=== PATIENT | male | born 1965 | race African-American/Black ===

== ENCOUNTER 2022-03-08 05:50 | Inpatient (IN) | payer MEDICAID ==
[~2022-03-08] VITALS: Ht 188 cm; Wt 90.4 kg
[2022-03-08] VITALS (40 sets, daily range): BP systolic 95–157; BP diastolic 31–79
[~2022-03-08 05:50] MED LIST: AMLO10TA4 PO
[2022-03-08 06:44] LABS: CHLORIDE 99 mEq/L (98-107); MEAN CORPUSCULAR HEMOGLOBIN 29.8 pg (28.0-32.0); MEAN CORPUSCULAR VOLUME 89.9 fL (80.0-94.0); MEAN PLATELET VOLUME 7.2 fl (7.4-10.4); PLATELET 61 x1000/uL (130-400); RED BLOOD CELL COUNT 2.32 mill/uL (4.7-6.1); RED CELL DISTRIBUTION WIDTH 23.1 % (11.6-14.6)
[2022-03-08 06:47] LABS: CLARITY URINE CLEAR (CLEAR); COLOR URINE YELLOW (YELLOW); KETONES URINE TRACE (NEGATIVE); LEUKOCYTE ESTERASE URINE NEGATIVE (NEGATIVE); NITRITE URINE NEGATIVE (NEGATIVE); OCCULT BLOOD URINE NEGATIVE (NEGATIVE); PROTEIN URINE TRACE (NEGATIVE); SPECIFIC GRAVITY URINE 1.018 (1.005-1.030)
[2022-03-08 06:49] LABS: HEMATOCRIT. 20.9 % (42.0-52.0); HEMOGLOBIN. 6.9 g/dL (14.0-18.0)
[2022-03-08 07:01] LABS: ETHANOL BLOOD < 10 mg/dL
[2022-03-08 07:04] LABS: *AMPHETAMINES SCREEN URINE NEGATIVE (NEGATIVE); *BARBITURATES SCREEN URINE NEGATIVE (NEGATIVE); *BENZODIAZEPINES SCREEN URINE NEGATIVE (NEGATIVE); *COCAINE SCREEN URINE NEGATIVE (NEGATIVE); CANNABINOID URINE SCREEN PRESUMTIVE POSITIVE (NEGATIVE); METHADONE URINE SCREEN NEGATIVE (NEGATIVE); OPIATES URINE SCREEN PRESUMTIVE POSITIVE (NEGATIVE); PHENCYCLIDINE URINE SCREEN NEGATIVE (NEGATIVE)
[2022-03-08 07:22] LABS: INR 1.1; PROTHROMBIN TIME 11.3 sec (9.6-11.0)
[2022-03-08 07:29] LABS: NUCLEATED RED BLOOD CELLS 4 /100 WBC
[2022-03-08 07:30] LABS: PLATELET ESTIMATE DECREASED
[2022-03-08] MEDS ORDERED: ETOMIDATE 2MG/ML 10ML VIAL IV ONE (07:45)
[2022-03-08] MEDS ORDERED: SUCCINYLCHOLINE CHLORIDE 200MG/10ML IV ONE (07:45)
[2022-03-08] MEDS ORDERED: MIDAZOLAM 100MG/100ML PMX 100 ML IV PRN (08:00)
[2022-03-08] MEDS ORDERED: THROMBIN (BOVINE) 5000 UNITS/VIAL TOP ONE (08:04)
[2022-03-08] MEDS ORDERED: BACITRACIN 15GM TUBE TOP ONE (08:04)
[2022-03-08] MEDS ORDERED: LIDOCAINE HCL/EPINEPHRINE 1%-EPI 1:100,000 20 ML VIAL ONE (08:04)
[2022-03-08] MEDS ORDERED: GENTAMICIN SULF 40MG/ML 2ML VIAL ONE (08:04)
[2022-03-08] MEDS ORDERED: ROCURONIUM BROMIDE 10MG/ML VIAL 5ML IV ONE ×2 (08:24→10:15)
[2022-03-08] MEDS ORDERED: HYDROMORPHONE HCL/PF 2MG/ML CPJ ONE (09:05)
[2022-03-08] MEDS ORDERED: ALBUMIN HUMAN 25GM/100ML (25%) IV ONE (09:09)
[2022-03-08] MEDS ORDERED: DEXAMETHASONE 4MG/ML 1ML VIAL ONE (09:44)
[2022-03-08] MEDS ORDERED: CEFAZOLIN SODIUM 1000MG/VIAL ONE (09:44)
[2022-03-08] MEDS ORDERED: NICARDIPINE 100 MG in SODIUM CHLORIDE 0.9% 60 ML IV PRN (10:15)
[2022-03-08] MEDS ORDERED: MORPHINE SULFATE 4 MG/ML CPJ (NOT FOR IM USE) IV PRN (10:15)
[2022-03-08] MEDS ORDERED: HYDRALAZINE 20MG/ML VIAL IV NR ×2 (11:20→15:15)
[2022-03-08] MEDS ORDERED: DEXTROSE 50% WATER 50ML SYRINGE IV PRN (11:30)
[2022-03-08] MEDS ORDERED: MAGNESIUM/ALUMINUM HYDROXIDE/SIMETHICONE 30ML UDC PO PRN (11:30)
[2022-03-08] MEDS ORDERED: IPRATROPIUM/ALBUTEROL 0.5-3(2.5)MG/3ML NEB HHN PRN (11:30)
[2022-03-08] MEDS ORDERED: HYDROCODONE/ACETAMINOPHEN 5/325MG TABLET PO PRN (11:30)
[2022-03-08] MEDS ORDERED: ACETAMINOPHEN 325MG TABLET PO PRN (11:30)
[2022-03-08] MEDS ORDERED: ONDANSETRON HCL 4MG/2ML INJ IV PRN (11:30)
[2022-03-08 11:40] LABS: BG BASE EXCESS -1.4 mmol/L (-2.0-2.0); BG CARBOXYHEMOGLOBIN 0.1 % (0.5-1.5); BG DEOXYHEMOGLOBIN 0.4 % (0.0-5.0); BG FRACTION INSPIRED OXYGEN 100; BG HCO3 ACT 23.4 mmol/L (22.0-26.0); BG METHEMOGLOBIN 0.2 % (0.0-1.5); BG OXYGEN SATURATION 99.6 % (92.0-98.5); BG OXYHEMOGLOBIN 99.3 % (94.0-97.0); BG PCO2 39.8 mmHg (35.0-45.0); BG PH 7.388 (7.350-7.450); BG PO2 388.2 mmHg (75.0-100.0); BG SAMPLE SITE ALINE; BG TOTAL HEMOGLOBIN 6.5 g/dL (12.0-18.0); BG VENT MODE VENT - AC
[2022-03-08] MEDS ORDERED: FUROSEMIDE 20MG/2ML VIAL IVP NR ×2 (13:00→23:00)
[2022-03-08] MEDS ORDERED: NALOXONE HCL 0.4MG/ML VIAL IV PRN (13:45)
[2022-03-08] MEDS ORDERED: CEFAZOLIN 1000MG PREMIX 50 ML IV SCH (14:00)
[2022-03-08] MEDS: PROPOFOL 10MG/ML 100ML 100 ML IV PRN ×3 (14:19→21:45)
[2022-03-08] MEDS: NICARDIPINE 100 MG in SODIUM CHLORIDE 0.9% 100 ML IV PRN ×3 (14:23→23:50)
[2022-03-08] MEDS: DEXT 5%/LACTATED RINGERS 1,000 ML IV SCH (14:26)
[2022-03-08 15:01] LABS: ETHANOL BLOOD < 10 mg/dL; TOTAL IRON BINDING CAPACITY 324 ug/dL (250-450)
[2022-03-08] MEDS: CEFAZOLIN 1000MG PREMIX 50 ML IV SCH ×2 (15:24→22:44)
[2022-03-08] MEDS ORDERED: MORPHINE SULFATE 4 MG/ML CPJ (NOT FOR IM USE) IV NR (15:30)
[2022-03-08] MEDS: FENTANYL 2500MCG/250ML PMX 250 ML IV PRN (17:22)
[2022-03-08] MEDS: MORPHINE SULFATE 4 MG/ML CPJ (NOT FOR IM USE) IV PRN ×2 (21:30→23:46)
[2022-03-08] MEDS: HYDRALAZINE 20MG/ML VIAL IV PRN (22:11)
[2022-03-09] VITALS (81 sets, daily range): BP systolic 94–162; BP diastolic 38–58
[2022-03-09] MEDS: PROPOFOL 10MG/ML 100ML 100 ML IV PRN ×6 (01:09→20:38)
[2022-03-09] MEDS: MORPHINE SULFATE 4 MG/ML CPJ (NOT FOR IM USE) IV PRN ×4 (02:14→13:51)
[2022-03-09] MEDS: FENTANYL 2500MCG/250ML PMX 250 ML IV PRN (04:17)
[2022-03-09 04:38] LABS: HEMOGLOBIN. 7.4 g/dL (14.0-18.0); MEAN CORPUSCULAR HEMOGLOBIN 30.2 pg (28.0-32.0); MEAN CORPUSCULAR VOLUME 89.3 fL (80.0-94.0); MEAN PLATELET VOLUME 6.9 fl (7.4-10.4); PLATELET 55 x1000/uL (130-400); RED BLOOD CELL COUNT 2.46 mill/uL (4.7-6.1); RED CELL DISTRIBUTION WIDTH 18.8 % (11.6-14.6)
[2022-03-09] MEDS: CEFAZOLIN 1000MG PREMIX 50 ML IV SCH ×3 (06:15→21:29)
[2022-03-09 06:35] LABS: CHLORIDE 104 mEq/L (98-107)
[2022-03-09] MEDS: NICARDIPINE 100 MG in SODIUM CHLORIDE 0.9% 100 ML IV PRN ×3 (06:37→22:27)
[2022-03-09 06:48] LABS: HDL CHOLESTEROL 96 mg/dL (40-59); LDL CHOLESTEROL 62 mg/dL (5-100); PHOSPHORUS 5.2 mg/dL (2.5-4.9); T4 FREE 1.32 ng/dL (0.76-1.46)
[2022-03-09] MEDS: PANTOPRAZOLE SODIUM 40 MG/VIAL IV SCH (08:05)
[2022-03-09 08:59] LABS: BG BASE EXCESS -2.4 mmol/L (-2.0-2.0); BG CARBOXYHEMOGLOBIN 0.6 % (0.5-1.5); BG DEOXYHEMOGLOBIN 2.2 % (0.0-5.0); BG FRACTION INSPIRED OXYGEN 40; BG HCO3 ACT 22.2 mmol/L (22.0-26.0); BG METHEMOGLOBIN 0.6 % (0.0-1.5); BG OXYGEN SATURATION 97.8 % (92.0-98.5); BG OXYHEMOGLOBIN 96.6 % (94.0-97.0); BG PH 7.396 (7.350-7.450); BG PO2 110.7 mmHg (75.0-100.0); BG SAMPLE SITE ALINE; BG TOTAL HEMOGLOBIN 7.5 g/dL (12.0-18.0); BG VENT MODE VENT - AC
[2022-03-09] MEDS: DEXAMETHASONE 4MG/ML 1ML VIAL IV SCH ×3 (09:14→17:33)
[2022-03-09] MEDS ORDERED: LIDOCAINE HCL/PF 1% 10 MG/ML 5ML VIAL ONE (09:16)
[2022-03-09 09:42] LABS: NUCLEATED RED BLOOD CELLS 4 /100 WBC
[2022-03-09 09:43] LABS: PLATELET ESTIMATE MARKEDLY DECREASED
[2022-03-09] MEDS: AMLODIPINE 10MG TABLET PO SCH (14:15)
[2022-03-09] MEDS ORDERED: MANNITOL 20% (20GM/100ML) BAG 500ML PREMIX IV ONE (14:45)
[2022-03-09 15:13] LABS: HEMOGLOBIN 7.7 g/dL (14.0-18.0); MEAN CORPUSCULAR HEMOGLOBIN 30.3 pg (28.0-32.0); MEAN CORPUSCULAR VOLUME 89.8 fL (80.0-94.0); PLATELET 51 x1000/uL (130-400); RED BLOOD CELL COUNT 2.56 mill/uL (4.7-6.1); RED CELL DISTRIBUTION WIDTH 18.9 % (11.6-14.6)
[2022-03-09] MEDS ORDERED: MANNITOL 20% 200 ML IV NR (15:30)
[2022-03-09] MEDS: NITROPRUSSIDE 50 MG in SODIUM CHLORIDE 0.9% 248 ML IV PRN (17:41)
[2022-03-09] MEDS: LEVETIRACETAM 500MG PREMIX 100 ML IV SCH (20:37)
[2022-03-10] VITALS (83 sets, daily range): BP systolic 90–185; BP diastolic 38–74
[2022-03-10] MEDS: PROPOFOL 10MG/ML 100ML 100 ML IV PRN ×7 (00:24→22:15)
[2022-03-10] MEDS: DEXAMETHASONE 4MG/ML 1ML VIAL IV SCH ×4 (00:33→17:30)
[2022-03-10] MEDS: FENTANYL 2500MCG/250ML PMX 250 ML IV PRN ×2 (00:33→17:22)
[2022-03-10] MEDS: DEXT 5%/LACTATED RINGERS 1,000 ML IV SCH ×3 (00:34→22:13)
[2022-03-10 02:18] LABS: HEMATOCRIT. 24.7 % (42.0-52.0); HEMOGLOBIN. 8.2 g/dL (14.0-18.0); MEAN CORPUSCULAR HEMOGLOBIN 30.4 pg (28.0-32.0); MEAN PLATELET VOLUME 8.2 fl (7.4-10.4); PLATELET 98 x1000/uL (130-400); RED BLOOD CELL COUNT 2.69 mill/uL (4.7-6.1); RED CELL DISTRIBUTION WIDTH 18.3 % (11.6-14.6)
[2022-03-10] MEDS: NITROPRUSSIDE 50 MG in SODIUM CHLORIDE 0.9% 248 ML IV PRN ×2 (04:59→17:30)
[2022-03-10] MEDS: NICARDIPINE 100 MG in SODIUM CHLORIDE 0.9% 100 ML IV PRN ×4 (05:22→22:33)
[2022-03-10] MEDS: CEFAZOLIN 1000MG PREMIX 50 ML IV SCH ×2 (05:22→15:17)
[2022-03-10 06:36] LABS: CHLORIDE 104 mEq/L (98-107)
[2022-03-10 06:50] LABS: HEMOGLOBIN. 7.2 g/dL (14.0-18.0); MEAN CORPUSCULAR HEMOGLOBIN 30.5 pg (28.0-32.0); MEAN CORPUSCULAR VOLUME 89.3 fL (80.0-94.0); MEAN PLATELET VOLUME 8.2 fl (7.4-10.4); PLATELET 99 x1000/uL (130-400); RED BLOOD CELL COUNT 2.35 mill/uL (4.7-6.1); RED CELL DISTRIBUTION WIDTH 17.5 % (11.6-14.6)
[2022-03-10 06:55] LABS: HEPATITIS B SURFACE ANTIGEN NEGATIVE
[2022-03-10 07:12] LABS: HAPTOGLOBIN 342 mg/dL (30-200)
[2022-03-10 07:36] LABS: NUCLEATED RED BLOOD CELLS 5 /100 WBC
[2022-03-10 07:37] LABS: PLATELET ESTIMATE DECREASED
[2022-03-10] MEDS: LEVETIRACETAM 500MG PREMIX 100 ML IV SCH (08:52)
[2022-03-10] MEDS: PANTOPRAZOLE SODIUM 40 MG/VIAL IV SCH (08:52)
[2022-03-10] MEDS: AMLODIPINE 10MG TABLET PO SCH (09:00)
[2022-03-10 09:12] LABS: BG BASE EXCESS -1.3 mmol/L (-2.0-2.0); BG CARBOXYHEMOGLOBIN 0.3 % (0.5-1.5); BG DEOXYHEMOGLOBIN 2.8 % (0.0-5.0); BG FRACTION INSPIRED OXYGEN 35; BG HCO3 ACT 22.8 mmol/L (22.0-26.0); BG METHEMOGLOBIN 0.1 % (0.0-1.5); BG OXYGEN SATURATION 97.2 % (92.0-98.5); BG OXYHEMOGLOBIN 96.8 % (94.0-97.0); BG PCO2 34.7 mmHg (35.0-45.0); BG PH 7.435 (7.350-7.450); BG PO2 100.9 mmHg (75.0-100.0); BG SAMPLE SITE ALINE; BG TOTAL HEMOGLOBIN 7.1 g/dL (12.0-18.0); BG VENT MODE VENT - AC
[2022-03-10] MEDS ORDERED: PHENYTOIN SODIUM 500 MG in SODIUM CHLORIDE 0.9% 50 ML IV NR (09:30)
[2022-03-10 11:22] LABS: NUCLEATED RED BLOOD CELLS 1 /100 WBC; PLATELET ESTIMATE SLIGHTLY DECREASED
[2022-03-10] MEDS ORDERED: PHENYTOIN SODIUM 100MG/2ML VIAL IV SCH (18:00)
[2022-03-10 19:24] LABS: HEMATOCRIT 24.1 % (42.0-52.0); HEMOGLOBIN 8.2 g/dL (14.0-18.0)
[2022-03-10] MEDS: PHENYTOIN SODIUM 100MG/2ML VIAL IV SCH (22:13)
[2022-03-10] MEDS: LEVETIRACETAM 1000MG PREMIX 100 ML IV SCH (22:14)
[2022-03-11] VITALS (90 sets, daily range): BP systolic 96–244; BP diastolic 35–243
[2022-03-11] MEDS: NICARDIPINE 100 MG in SODIUM CHLORIDE 0.9% 100 ML IV PRN ×3 (02:13→18:27)
[2022-03-11] MEDS: PROPOFOL 10MG/ML 100ML 100 ML IV PRN ×5 (02:14→18:28)
[2022-03-11] MEDS: PHENYTOIN SODIUM 100MG/2ML VIAL IV SCH ×3 (05:46→21:44)
[2022-03-11] MEDS: NITROPRUSSIDE 50 MG in SODIUM CHLORIDE 0.9% 248 ML IV PRN (05:46)
[2022-03-11 05:47] LABS: BASOPHILS % 0.4 % (0.0-2.0); EOSINOPHILS % 0.1 % (0.0-5.0); HEMATOCRIT. 22.4 % (42.0-52.0); HEMOGLOBIN. 7.6 g/dL (14.0-18.0); LYMPHOCYTES % 6.1 % (20.0-50.0); MEAN CORPUSCULAR HEMOGLOBIN 30.9 pg (28.0-32.0); MEAN CORPUSCULAR VOLUME 90.4 fL (80.0-94.0); MEAN PLATELET VOLUME 8.1 fl (7.4-10.4); MONOCYTES % 4.3 % (2.0-8.0); NEUTROPHILS % 89.1 % (40.0-76.0); PLATELET 91 x1000/uL (130-400); RED BLOOD CELL COUNT 2.48 mill/uL (4.7-6.1)
[2022-03-11 06:09] LABS: CHLORIDE 109 mEq/L (98-107)
[2022-03-11] MEDS ORDERED: THROMBIN (BOVINE) 5000 UNITS/VIAL TOP ONE (06:30)
[2022-03-11] MEDS ORDERED: GENTAMICIN SULF 40MG/ML 2ML VIAL ONE (06:30)
[2022-03-11] MEDS ORDERED: BACITRACIN 15GM TUBE TOP ONE (06:30)
[2022-03-11] MEDS ORDERED: LIDOCAINE HCL/EPINEPHRINE 1%-EPI 1:100,000 20 ML VIAL ONE (06:31)
[2022-03-11 08:12] LABS: ANTI-NUCLEAR ANTIBODIES DIRECT Negative (Negative); HIV SCREEN 4G Non Reactive (Non Reactive)
[2022-03-11 08:50] LABS: BG CARBOXYHEMOGLOBIN 0.3 % (0.5-1.5); BG DEOXYHEMOGLOBIN 3.1 % (0.0-5.0); BG FRACTION INSPIRED OXYGEN 35; BG HCO3 ACT 21.8 mmol/L (22.0-26.0); BG OXYGEN SATURATION 96.9 % (92.0-98.5); BG OXYHEMOGLOBIN 96.6 % (94.0-97.0); BG PCO2 32.7 mmHg (35.0-45.0); BG PH 7.442 (7.350-7.450); BG PO2 96.4 mmHg (75.0-100.0); BG SAMPLE SITE LEFT RADIAL; BG TOTAL HEMOGLOBIN 6.9 g/dL (12.0-18.0); BG VENT MODE VENT - AC
[2022-03-11] MEDS: PANTOPRAZOLE SODIUM 40 MG/VIAL IV SCH (09:25)
[2022-03-11] MEDS: HYDRALAZINE 20MG/ML VIAL IV PRN ×3 (09:25→18:26)
[2022-03-11] MEDS: METOPROLOL TARTRATE 50MG TABLET PO SCH ×2 (09:26→20:46)
[2022-03-11] MEDS: AMLODIPINE 10MG TABLET PO SCH (09:26)
[2022-03-11] MEDS: LEVETIRACETAM 1000MG PREMIX 100 ML IV SCH (09:26)
[2022-03-11] MEDS: BICALUTAMIDE 50 MG TABLET PO SCH (09:30)
[2022-03-11] MEDS: LOSARTAN POTASSIUM 100 MG TABLET PO SCH ×2 (10:15→14:49)
[2022-03-11] MEDS: FENTANYL 2500MCG/250ML PMX 250 ML IV PRN (10:56)
[2022-03-11] MEDS ORDERED: VECURONIUM BROMIDE 10 MG/VIAL IV ONE (11:16)
[2022-03-11] MEDS ORDERED: PROPOFOL 200MG/20ML VIAL IV ONE (11:17)
[2022-03-11] MEDS ORDERED: PHENYTOIN SODIUM 500 MG in SODIUM CHLORIDE 0.9% 50 ML IV NR (12:00)
[2022-03-11] MEDS ORDERED: LEVETIRACETAM 500MG PREMIX 100 ML IV NR (12:00)
[2022-03-11] MEDS ORDERED: CEFAZOLIN SODIUM 1000MG/VIAL ONE (12:02)
[2022-03-11] MEDS ORDERED: HYDRALAZINE 20MG/ML VIAL ONE (12:02)
[2022-03-11] MEDS ORDERED: LABETALOL HCL 5MG/ML VIAL 20ML IV ONE (12:02)
[2022-03-11] MEDS ORDERED: MIDAZOLAM HCL 2 MG/2 ML VIAL ONE (12:07)
[2022-03-11] MEDS ORDERED: FENTANYL CITRATE/PF 50MCG/ML 2ML VIAL ONE (12:07)
[2022-03-11] MEDS ORDERED: CEFAZOLIN SODIUM 1000MG/VIAL IV SCH (14:00)
[2022-03-11 14:26] LABS: HEMATOCRIT 28.2 % (42.0-52.0); HEMOGLOBIN 9.5 g/dL (14.0-18.0)
[2022-03-11] MEDS: HYDRALAZINE HCL 50MG TABLET PO SCH ×2 (14:48→22:37)
[2022-03-11] MEDS: CLONIDINE 0.1MG TABLET PO PRN (14:50)
[2022-03-11] MEDS: LEVETIRACETAM 1,500 MG in SODIUM CHLORIDE 0.9% 100 ML IV SCH (20:46)
[2022-03-11] MEDS: CEFAZOLIN 1000MG PREMIX 50 ML IV SCH (22:04)
[2022-03-11] MEDS: DEXT 5%/LACTATED RINGERS 1,000 ML IV SCH (22:04)
[2022-03-12] VITALS (85 sets, daily range): BP systolic 73–132; BP diastolic 40–67
[2022-03-12] MEDS: PROPOFOL 10MG/ML 100ML 100 ML IV PRN ×6 (00:23→20:35)
[2022-03-12] MEDS: NICARDIPINE 100 MG in SODIUM CHLORIDE 0.9% 100 ML IV PRN (04:09)
[2022-03-12] MEDS: FENTANYL 2500MCG/250ML PMX 250 ML IV PRN ×2 (04:10→19:31)
[2022-03-12 05:11] LABS: HEMATOCRIT. 29.2 % (42.0-52.0); HEMOGLOBIN. 9.7 g/dL (14.0-18.0); MEAN CORPUSCULAR HEMOGLOBIN 30.4 pg (28.0-32.0); MEAN CORPUSCULAR VOLUME 91.3 fL (80.0-94.0); MEAN PLATELET VOLUME 8.1 fl (7.4-10.4); PLATELET 88 x1000/uL (130-400); RED CELL DISTRIBUTION WIDTH 16.6 % (11.6-14.6)
[2022-03-12 05:19] LABS: CHLORIDE 112 mEq/L (98-107)
[2022-03-12] MEDS: HYDRALAZINE HCL 50MG TABLET PO SCH ×3 (06:41→22:20)
[2022-03-12] MEDS: PHENYTOIN SODIUM 100MG/2ML VIAL IV SCH ×3 (06:41→22:20)
[2022-03-12] MEDS: CEFAZOLIN 1000MG PREMIX 50 ML IV SCH ×2 (06:41→12:48)
[2022-03-12] MEDS: PANTOPRAZOLE SODIUM 40 MG/VIAL IV SCH (08:17)
[2022-03-12] MEDS: LOSARTAN POTASSIUM 100 MG TABLET PO SCH (08:17)
[2022-03-12] MEDS: AMLODIPINE 10MG TABLET PO SCH (08:18)
[2022-03-12] MEDS: METOPROLOL TARTRATE 50MG TABLET PO SCH ×2 (08:18→21:00)
[2022-03-12 08:32] LABS: BG BASE EXCESS 1.5 mmol/L (-2.0-2.0); BG CARBOXYHEMOGLOBIN 0.1 % (0.5-1.5); BG DEOXYHEMOGLOBIN 2.4 % (0.0-5.0); BG FRACTION INSPIRED OXYGEN 35; BG HCO3 ACT 26.1 mmol/L (22.0-26.0); BG METHEMOGLOBIN 0.2 % (0.0-1.5); BG OXYGEN SATURATION 97.6 % (92.0-98.5); BG OXYHEMOGLOBIN 97.3 % (94.0-97.0); BG PH 7.421 (7.350-7.450); BG PO2 100.6 mmHg (75.0-100.0); BG SAMPLE SITE ALINE; BG TOTAL HEMOGLOBIN 9.8 g/dL (12.0-18.0); BG TOTAL RESPIRATORY RATE 18 b/min; BG VENT MODE VENT - AC
[2022-03-12 09:08] LABS: PLATELET ESTIMATE DECREASED
[2022-03-12] MEDS: BICALUTAMIDE 50 MG TABLET PO SCH (10:20)
[2022-03-12] MEDS: LEVETIRACETAM 1,500 MG in SODIUM CHLORIDE 0.9% 100 ML IV SCH ×2 (10:22→20:35)
[2022-03-12] MEDS ORDERED: PROPOFOL 10MG/ML 100ML 100 ML IV PRN (12:00)
[2022-03-12] MEDS: METRONIDAZOLE 500MG TABLET PO SCH ×2 (12:47→22:20)
[2022-03-12] MEDS: DEXT 5%/LACTATED RINGERS 1,000 ML IV SCH ×2 (14:15→22:32)
[2022-03-12] MEDS: CEFEPIME 2,000 MG in DEXT 5% WATER 100 ML IV SCH (14:23)
[2022-03-12] MEDS: MORPHINE SULFATE 4 MG/ML CPJ (NOT FOR IM USE) IV PRN (16:37)
[2022-03-12 22:02] LABS: HEMATOCRIT 28.8 % (42.0-52.0); HEMOGLOBIN 9.6 g/dL (14.0-18.0); MEAN CORPUSCULAR HEMOGLOBIN 30.7 pg (28.0-32.0); MEAN CORPUSCULAR VOLUME 91.9 fL (80.0-94.0); PLATELET 87 x1000/uL (130-400); RED BLOOD CELL COUNT 3.14 mill/uL (4.7-6.1); RED CELL DISTRIBUTION WIDTH 16.9 % (11.6-14.6)
[2022-03-13] VITALS (86 sets, daily range): BP systolic 101–194; BP diastolic 51–84
[2022-03-13] MEDS: PROPOFOL 10MG/ML 100ML 100 ML IV PRN ×7 (00:48→22:01)
[2022-03-13] MEDS: CEFEPIME 2,000 MG in DEXT 5% WATER 100 ML IV SCH ×2 (02:23→13:23)
[2022-03-13] MEDS: HYDRALAZINE 20MG/ML VIAL IV PRN ×3 (03:07→18:04)
[2022-03-13] MEDS: MORPHINE SULFATE 4 MG/ML CPJ (NOT FOR IM USE) IV PRN ×3 (04:13→21:04)
[2022-03-13] MEDS: PHENYTOIN SODIUM 100MG/2ML VIAL IV SCH ×3 (05:44→21:04)
[2022-03-13] MEDS: HYDRALAZINE HCL 50MG TABLET PO SCH ×3 (05:44→21:04)
[2022-03-13] MEDS: METRONIDAZOLE 500MG TABLET PO SCH ×3 (05:44→21:04)
[2022-03-13 06:37] LABS: HEMATOCRIT. 28.7 % (42.0-52.0); HEMOGLOBIN. 9.7 g/dL (14.0-18.0); MEAN CORPUSCULAR HEMOGLOBIN 30.6 pg (28.0-32.0); MEAN CORPUSCULAR VOLUME 90.4 fL (80.0-94.0); MEAN PLATELET VOLUME 8.2 fl (7.4-10.4); PLATELET 113 x1000/uL (130-400); RED BLOOD CELL COUNT 3.17 mill/uL (4.7-6.1); RED CELL DISTRIBUTION WIDTH 16.4 % (11.6-14.6)
[2022-03-13 06:39] LABS: CHLORIDE 110 mEq/L (98-107)
[2022-03-13] MEDS ORDERED: POTASSIUM CHLORIDE 20MEQ TABLET SR PO NR (07:30)
[2022-03-13] MEDS: BICALUTAMIDE 50 MG TABLET PO SCH (07:57)
[2022-03-13] MEDS: AMLODIPINE 10MG TABLET PO SCH (07:57)
[2022-03-13] MEDS: PANTOPRAZOLE SODIUM 40 MG/VIAL IV SCH (07:57)
[2022-03-13] MEDS: LOSARTAN POTASSIUM 100 MG TABLET PO SCH (07:58)
[2022-03-13] MEDS: METOPROLOL TARTRATE 50MG TABLET PO SCH ×2 (07:58→20:18)
[2022-03-13 08:14] LABS: NUCLEATED RED BLOOD CELLS 6 /100 WBC; PLATELET ESTIMATE DECREASED
[2022-03-13] MEDS: FENTANYL 2500MCG/250ML PMX 250 ML IV PRN ×2 (09:52→22:39)
[2022-03-13] MEDS: LEVETIRACETAM 1,500 MG in SODIUM CHLORIDE 0.9% 100 ML IV SCH ×2 (09:53→21:06)
[2022-03-13] MEDS: CLONIDINE 0.1MG TABLET PO PRN (12:50)
[2022-03-13] MEDS: NICARDIPINE 100 MG in SODIUM CHLORIDE 0.9% 100 ML IV PRN ×2 (13:14→18:23)
[2022-03-13 17:48] LABS: CLARITY URINE CLEAR (CLEAR); COLOR URINE YELLOW (YELLOW); KETONES URINE NEGATIVE (NEGATIVE); LEUKOCYTE ESTERASE URINE NEGATIVE (NEGATIVE); NITRITE URINE NEGATIVE (NEGATIVE); OCCULT BLOOD URINE NEGATIVE (NEGATIVE); PH URINE 6.5 (4.5-8.0); PROTEIN URINE NEGATIVE (NEGATIVE); SPECIFIC GRAVITY URINE 1.009 (1.005-1.030); UROBILINOGEN URINE 0.2 E.U./dL (0.2-1.0)
[2022-03-13] MEDS: DEXT 5%/LACTATED RINGERS 1,000 ML IV SCH (19:28)
[2022-03-14] VITALS (95 sets, daily range): BP systolic 114–154; BP diastolic 59–84
[2022-03-14] MEDS: HYDRALAZINE 20MG/ML VIAL IV PRN ×2 (00:42→08:02)
[2022-03-14] MEDS: PROPOFOL 10MG/ML 100ML 100 ML IV PRN ×7 (01:49→23:30)
[2022-03-14] MEDS: NICARDIPINE 100 MG in SODIUM CHLORIDE 0.9% 100 ML IV PRN ×4 (01:49→23:30)
[2022-03-14] MEDS: CEFEPIME 2,000 MG in DEXT 5% WATER 100 ML IV SCH ×2 (01:50→13:33)
[2022-03-14] MEDS: MORPHINE SULFATE 4 MG/ML CPJ (NOT FOR IM USE) IV PRN ×3 (02:47→15:18)
[2022-03-14] MEDS: METRONIDAZOLE 500MG TABLET PO SCH ×3 (05:23→22:30)
[2022-03-14] MEDS: HYDRALAZINE HCL 50MG TABLET PO SCH (05:24)
[2022-03-14] MEDS: PHENYTOIN SODIUM 100MG/2ML VIAL IV SCH ×3 (05:24→22:30)
[2022-03-14 05:26] LABS: HEMATOCRIT. 30.7 % (42.0-52.0); HEMOGLOBIN. 10.3 g/dL (14.0-18.0); MEAN CORPUSCULAR HEMOGLOBIN 30.3 pg (28.0-32.0); MEAN PLATELET VOLUME 7.8 fl (7.4-10.4); PLATELET 99 x1000/uL (130-400); RED BLOOD CELL COUNT 3.41 mill/uL (4.7-6.1); RED CELL DISTRIBUTION WIDTH 16.3 % (11.6-14.6)
[2022-03-14 05:38] LABS: CHLORIDE 104 mEq/L (98-107)
[2022-03-14] MEDS: BICALUTAMIDE 50 MG TABLET PO SCH (08:02)
[2022-03-14] MEDS: METOPROLOL TARTRATE 50MG TABLET PO SCH ×2 (08:02→22:00)
[2022-03-14] MEDS: PANTOPRAZOLE SODIUM 40 MG/VIAL IV SCH (08:02)
[2022-03-14] MEDS: LOSARTAN POTASSIUM 100 MG TABLET PO SCH (08:02)
[2022-03-14] MEDS: AMLODIPINE 10MG TABLET PO SCH (08:02)
[2022-03-14 08:58] LABS: NUCLEATED RED BLOOD CELLS 4 /100 WBC; PLATELET ESTIMATE DECREASED
[2022-03-14 09:09] LABS: BG BASE EXCESS 3.4 mmol/L (-2.0-2.0); BG CARBOXYHEMOGLOBIN 0.3 % (0.5-1.5); BG DEOXYHEMOGLOBIN 7.2 % (0.0-5.0); BG FRACTION INSPIRED OXYGEN 35; BG HCO3 ACT 26.1 mmol/L (22.0-26.0); BG METHEMOGLOBIN 0.3 % (0.0-1.5); BG OXYGEN SATURATION 92.8 % (92.0-98.5); BG OXYHEMOGLOBIN 92.2 % (94.0-97.0); BG PCO2 32.8 mmHg (35.0-45.0); BG PH 7.519 (7.350-7.450); BG PO2 61.9 mmHg (75.0-100.0); BG SAMPLE SITE RIGHT RADIAL; BG TOTAL HEMOGLOBIN 10.6 g/dL (12.0-18.0); BG VENT MODE VENT - AC
[2022-03-14] MEDS: LEVETIRACETAM 1,500 MG in SODIUM CHLORIDE 0.9% 100 ML IV SCH ×2 (09:22→22:00)
[2022-03-14] MEDS ORDERED: POTASSIUM CHLORIDE 20MEQ TABLET SR PO NR (10:57)
[2022-03-14] MEDS: FENTANYL 2500MCG/250ML PMX 250 ML IV PRN (11:22)
[2022-03-14] MEDS: HYDRALAZINE HCL 100MG TABLET PO SCH ×2 (13:33→22:30)
[2022-03-14] MEDS: DEXT 5%/LACTATED RINGERS 1,000 ML IV SCH (15:16)
[2022-03-14] MEDS: CLONIDINE 0.1MG TABLET PO PRN (20:30)
[2022-03-14] MEDS: DESMOPRESSIN ACETATE 0.1MG TABLET PO SCH (21:59)
[2022-03-15] VITALS (64 sets, daily range): BP systolic 99–153; BP diastolic 52–86
[2022-03-15] MEDS: CEFEPIME 2,000 MG in DEXT 5% WATER 100 ML IV SCH ×2 (02:15→14:00)
[2022-03-15] MEDS: FENTANYL 2500MCG/250ML PMX 250 ML IV PRN ×2 (02:16→17:05)
[2022-03-15] MEDS: PROPOFOL 10MG/ML 100ML 100 ML IV PRN ×5 (03:56→22:59)
[2022-03-15 05:02] LABS: MEAN CORPUSCULAR HEMOGLOBIN 30.3 pg (28.0-32.0); MEAN PLATELET VOLUME 8.5 fl (7.4-10.4); PLATELET 94 x1000/uL (130-400); RED BLOOD CELL COUNT 2.97 mill/uL (4.7-6.1); RED CELL DISTRIBUTION WIDTH 16.3 % (11.6-14.6)
[2022-03-15 05:09] LABS: CHLORIDE 106 mEq/L (98-107)
[2022-03-15] MEDS: CLONIDINE 0.1MG TABLET PO PRN ×2 (05:11→21:57)
[2022-03-15] MEDS: METRONIDAZOLE 500MG TABLET PO SCH ×3 (05:11→22:58)
[2022-03-15] MEDS: HYDRALAZINE HCL 100MG TABLET PO SCH ×3 (05:11→22:58)
[2022-03-15] MEDS: PHENYTOIN SODIUM 100MG/2ML VIAL IV SCH ×3 (05:11→22:58)
[2022-03-15 09:37] LABS: NUCLEATED RED BLOOD CELLS 1 /100 WBC
[2022-03-15 09:38] LABS: PLATELET ESTIMATE DECREASED
[2022-03-15] MEDS: DEXT 5%/LACTATED RINGERS 1,000 ML IV SCH (09:38)
[2022-03-15] MEDS: DESMOPRESSIN ACETATE 0.1MG TABLET PO SCH ×2 (09:51→21:57)
[2022-03-15] MEDS: PANTOPRAZOLE SODIUM 40 MG/VIAL IV SCH (09:51)
[2022-03-15] MEDS: BICALUTAMIDE 50 MG TABLET PO SCH (09:52)
[2022-03-15] MEDS: LOSARTAN POTASSIUM 100 MG TABLET PO SCH (09:52)
[2022-03-15] MEDS: METOPROLOL TARTRATE 50MG TABLET PO SCH (09:52)
[2022-03-15] MEDS: AMLODIPINE 10MG TABLET PO SCH (09:52)
[2022-03-15] MEDS: LEVETIRACETAM 1,500 MG in SODIUM CHLORIDE 0.9% 100 ML IV SCH ×2 (09:58→21:57)
[2022-03-15] MEDS: NICARDIPINE 100 MG in SODIUM CHLORIDE 0.9% 100 ML IV PRN ×2 (11:02→18:34)
[2022-03-15 11:10] LABS: BG BASE EXCESS 4.1 mmol/L (-2.0-2.0); BG CARBOXYHEMOGLOBIN 0.3 % (0.5-1.5); BG DEOXYHEMOGLOBIN 3.7 % (0.0-5.0); BG FRACTION INSPIRED OXYGEN 40; BG HCO3 ACT 27.4 mmol/L (22.0-26.0); BG METHEMOGLOBIN 0.1 % (0.0-1.5); BG OXYGEN SATURATION 96.3 % (92.0-98.5); BG OXYHEMOGLOBIN 95.9 % (94.0-97.0); BG PCO2 35.6 mmHg (35.0-45.0); BG PH 7.504 (7.350-7.450); BG PO2 77.1 mmHg (75.0-100.0); BG SAMPLE SITE RIGHT RADIAL; BG TOTAL HEMOGLOBIN 9.2 g/dL (12.0-18.0); BG VENT MODE VENT - AC
[2022-03-15] MEDS ORDERED: POTASSIUM CHLORIDE 20MEQ TABLET SR PO NR (11:30)
[2022-03-15] MEDS ORDERED: PROPOFOL 10MG/ML 100ML 100 ML IV PRN (17:45)
[2022-03-15] MEDS: METOPROLOL TARTRATE 100MG TABLET PO SCH (21:58)
[2022-03-16] VITALS (93 sets, daily range): BP systolic 105–192; BP diastolic 55–92
[2022-03-16] MEDS: PROPOFOL 10MG/ML 100ML 100 ML IV PRN ×6 (02:04→21:19)
[2022-03-16] MEDS: DEXT 5%/LACTATED RINGERS 1,000 ML IV SCH ×2 (02:05→11:25)
[2022-03-16] MEDS: CEFEPIME 2,000 MG in DEXT 5% WATER 100 ML IV SCH ×2 (02:05→14:48)
[2022-03-16] MEDS: CLONIDINE 0.1MG TABLET PO PRN ×2 (04:18→22:05)
[2022-03-16] MEDS: PHENYTOIN SODIUM 100MG/2ML VIAL IV SCH ×3 (05:15→22:06)
[2022-03-16] MEDS: HYDRALAZINE HCL 100MG TABLET PO SCH (05:15)
[2022-03-16] MEDS: METRONIDAZOLE 500MG TABLET PO SCH ×3 (05:15→22:05)
[2022-03-16 05:39] LABS: HEMATOCRIT. 27.7 % (42.0-52.0); HEMOGLOBIN. 9.1 g/dL (14.0-18.0); MEAN CORPUSCULAR HEMOGLOBIN 30.2 pg (28.0-32.0); MEAN CORPUSCULAR VOLUME 91.8 fL (80.0-94.0); MEAN PLATELET VOLUME 8.1 fl (7.4-10.4); PLATELET 85 x1000/uL (130-400); RED BLOOD CELL COUNT 3.01 mill/uL (4.7-6.1); RED CELL DISTRIBUTION WIDTH 15.9 % (11.6-14.6)
[2022-03-16] MEDS: MORPHINE SULFATE 4 MG/ML CPJ (NOT FOR IM USE) IV PRN (06:10)
[2022-03-16 07:54] LABS: CHLORIDE 104 mEq/L (98-107)
[2022-03-16] MEDS: DESMOPRESSIN ACETATE 0.1MG TABLET PO SCH ×2 (08:23→22:04)
[2022-03-16] MEDS: AMLODIPINE 10MG TABLET PO SCH (08:23)
[2022-03-16] MEDS: BICALUTAMIDE 50 MG TABLET PO SCH (08:23)
[2022-03-16] MEDS: PANTOPRAZOLE SODIUM 40 MG/VIAL IV SCH (08:23)
[2022-03-16] MEDS: METOPROLOL TARTRATE 100MG TABLET PO SCH ×2 (08:24→22:05)
[2022-03-16] MEDS: LOSARTAN POTASSIUM 100 MG TABLET PO SCH (08:24)
[2022-03-16 08:35] LABS: BG BASE EXCESS 3.3 mmol/L (-2.0-2.0); BG CARBOXYHEMOGLOBIN 0.1 % (0.5-1.5); BG DEOXYHEMOGLOBIN 3.7 % (0.0-5.0); BG FRACTION INSPIRED OXYGEN 40; BG HCO3 ACT 27.3 mmol/L (22.0-26.0); BG METHEMOGLOBIN 0.2 % (0.0-1.5); BG OXYGEN SATURATION 96.3 % (92.0-98.5); BG PH 7.463 (7.350-7.450); BG PO2 84.7 mmHg (75.0-100.0); BG SAMPLE SITE RIGHT RADIAL; BG TOTAL HEMOGLOBIN 9.6 g/dL (12.0-18.0); BG VENT MODE VENT - AC
[2022-03-16] MEDS: LEVETIRACETAM 1,500 MG in SODIUM CHLORIDE 0.9% 100 ML IV SCH ×2 (08:44→22:04)
[2022-03-16 08:52] LABS: PLATELET ESTIMATE DECREASED
[2022-03-16] MEDS: NICARDIPINE 100 MG in SODIUM CHLORIDE 0.9% 100 ML IV PRN ×2 (10:20→20:03)
[2022-03-16] MEDS: FENTANYL 2500MCG/250ML PMX 250 ML IV PRN (10:21)
[2022-03-17] VITALS (100 sets, daily range): BP systolic 66–166; BP diastolic 33–111
[2022-03-17] MEDS: PROPOFOL 10MG/ML 100ML 100 ML IV PRN ×6 (00:32→23:27)
[2022-03-17] MEDS: CEFEPIME 2,000 MG in DEXT 5% WATER 100 ML IV SCH ×2 (03:34→15:18)
[2022-03-17] MEDS: PHENYTOIN SODIUM 100MG/2ML VIAL IV SCH ×3 (05:16→21:17)
[2022-03-17] MEDS: METRONIDAZOLE 500MG TABLET PO SCH (05:16)
[2022-03-17] MEDS: MORPHINE SULFATE 4 MG/ML CPJ (NOT FOR IM USE) IV PRN ×2 (05:16→18:52)
[2022-03-17 05:45] LABS: HEMATOCRIT. 28.4 % (42.0-52.0); HEMOGLOBIN. 9.4 g/dL (14.0-18.0); MEAN CORPUSCULAR VOLUME 90.8 fL (80.0-94.0); PLATELET 70 x1000/uL (130-400); RED BLOOD CELL COUNT 3.13 mill/uL (4.7-6.1); RED CELL DISTRIBUTION WIDTH 15.8 % (11.6-14.6)
[2022-03-17 06:00] LABS: CHLORIDE 101 mEq/L (98-107)
[2022-03-17] MEDS: NICARDIPINE 100 MG in SODIUM CHLORIDE 0.9% 100 ML IV PRN ×3 (06:19→22:00)
[2022-03-17 08:05] LABS: PLATELET ESTIMATE DECREASED
[2022-03-17] MEDS: PANTOPRAZOLE SODIUM 40 MG/VIAL IV SCH (08:32)
[2022-03-17] MEDS: BICALUTAMIDE 50 MG TABLET PO SCH (08:32)
[2022-03-17] MEDS: LOSARTAN POTASSIUM 100 MG TABLET PO SCH (08:32)
[2022-03-17] MEDS: LEVETIRACETAM 1,500 MG in SODIUM CHLORIDE 0.9% 100 ML IV SCH ×2 (08:33→21:59)
[2022-03-17] MEDS: DESMOPRESSIN ACETATE 0.1MG TABLET PO SCH ×2 (08:33→21:17)
[2022-03-17] MEDS: METOPROLOL TARTRATE 100MG TABLET PO SCH ×2 (08:33→21:17)
[2022-03-17] MEDS: NIFEDIPINE XL 90MG TAB PO SCH (08:35)
[2022-03-17] MEDS: DEXT 5%/LACTATED RINGERS 1,000 ML IV SCH (08:49)
[2022-03-17] MEDS ORDERED: POTASSIUM CHLORIDE 20MEQ TABLET SR PO SCH ×2 (11:00→11:30)
[2022-03-17] MEDS ORDERED: POTASSIUM CHLORIDE 20MEQ/PACKET GT SCH (13:00)
[2022-03-17 20:03] LABS: HEMATOCRIT 30.4 % (42.0-52.0); HEMOGLOBIN 10.3 g/dL (14.0-18.0)
[2022-03-17 20:23] LABS: INR 1.1; PROTHROMBIN TIME 11.3 sec (9.6-11.0)
[2022-03-17] MEDS: FENTANYL 2500MCG/250ML PMX 250 ML IV PRN (21:06)
[2022-03-18] VITALS (95 sets, daily range): BP systolic 72–157; BP diastolic 29–89
[2022-03-18] MEDS: HYDRALAZINE 20MG/ML VIAL IV PRN (00:53)
[2022-03-18] MEDS: DEXT 5%/LACTATED RINGERS 1,000 ML IV SCH ×2 (03:06→20:44)
[2022-03-18] MEDS: PROPOFOL 10MG/ML 100ML 100 ML IV PRN ×3 (03:06→10:42)
[2022-03-18] MEDS: CLONIDINE 0.1MG TABLET PO PRN ×2 (03:33→17:52)
[2022-03-18] MEDS: MORPHINE SULFATE 4 MG/ML CPJ (NOT FOR IM USE) IV PRN ×2 (03:34→16:06)
[2022-03-18] MEDS: PHENYTOIN SODIUM 100MG/2ML VIAL IV SCH ×3 (05:11→21:06)
[2022-03-18] MEDS: NICARDIPINE 100 MG in SODIUM CHLORIDE 0.9% 100 ML IV PRN (05:56)
[2022-03-18] MEDS: DESMOPRESSIN ACETATE 0.1MG TABLET PO SCH ×2 (08:15→21:05)
[2022-03-18] MEDS: METOPROLOL TARTRATE 100MG TABLET PO SCH ×2 (08:15→21:06)
[2022-03-18] MEDS: LEVETIRACETAM 1,500 MG in SODIUM CHLORIDE 0.9% 100 ML IV SCH ×2 (08:15→20:44)
[2022-03-18] MEDS: PANTOPRAZOLE SODIUM 40 MG/VIAL IV SCH (08:15)
[2022-03-18] MEDS: BICALUTAMIDE 50 MG TABLET PO SCH (08:15)
[2022-03-18] MEDS: NIFEDIPINE XL 90MG TAB PO SCH (08:16)
[2022-03-18] MEDS: LOSARTAN POTASSIUM 100 MG TABLET PO SCH (08:16)
[2022-03-18 08:55] LABS: BG BASE EXCESS 7.5 mmol/L (-2.0-2.0); BG CARBOXYHEMOGLOBIN 0.2 % (0.5-1.5); BG DEOXYHEMOGLOBIN 2.1 % (0.0-5.0); BG FRACTION INSPIRED OXYGEN 40; BG HCO3 ACT 31.5 mmol/L (22.0-26.0); BG METHEMOGLOBIN 0.3 % (0.0-1.5); BG OXYGEN SATURATION 97.9 % (92.0-98.5); BG OXYHEMOGLOBIN 97.4 % (94.0-97.0); BG PH 7.493 (7.350-7.450); BG PO2 111.8 mmHg (75.0-100.0); BG SAMPLE SITE RIGHT RADIAL; BG TOTAL HEMOGLOBIN 9.2 g/dL (12.0-18.0); BG VENT MODE VENT - AC
[2022-03-18] MEDS ORDERED: MIDAZOLAM HCL 100 MG in SODIUM CHLORIDE 0.9% 80 ML IV PRN (09:30)
[2022-03-18] MEDS: MIDAZOLAM 100MG/100ML PREMIX IV PRN (10:39)
[2022-03-18] MEDS: HYDRALAZINE HCL 25MG TABLET PO SCH ×2 (14:50→21:43)
[2022-03-18] MEDS ORDERED: FENTANYL CITRATE/PF 2,500 MCG in SODIUM CHLORIDE 0.9% 200 ML IV PRN (22:00)
[2022-03-19] VITALS (97 sets, daily range): BP systolic 97–170; BP diastolic 42–115
[2022-03-19] MEDS: HYDRALAZINE 20MG/ML VIAL IV PRN (00:21)
[2022-03-19] MEDS: NICARDIPINE 100 MG in SODIUM CHLORIDE 0.9% 100 ML IV PRN ×2 (01:28→14:08)
[2022-03-19] MEDS: CLONIDINE 0.1MG TABLET PO PRN (01:42)
[2022-03-19] MEDS: HYDRALAZINE HCL 25MG TABLET PO SCH ×3 (05:07→22:16)
[2022-03-19] MEDS: PHENYTOIN SODIUM 100MG/2ML VIAL IV SCH ×3 (05:07→22:17)
[2022-03-19 05:49] LABS: HEMATOCRIT. 28.7 % (42.0-52.0); HEMOGLOBIN. 9.6 g/dL (14.0-18.0); MEAN CORPUSCULAR HEMOGLOBIN 30.5 pg (28.0-32.0); RED BLOOD CELL COUNT 3.16 mill/uL (4.7-6.1); RED CELL DISTRIBUTION WIDTH 15.2 % (11.6-14.6)
[2022-03-19 05:57] LABS: INR 0.9; PROTHROMBIN TIME 10.2 sec (9.6-11.0)
[2022-03-19] MEDS: MIDAZOLAM 100MG/100ML PREMIX IV PRN (05:58)
[2022-03-19 06:17] LABS: CHLORIDE 100 mEq/L (98-107)
[2022-03-19 06:45] LABS: FOLIC ACID (FOLATE) SERUM 6.8 ng/mL (>5.38)
[2022-03-19 07:49] LABS: BG BASE EXCESS 7.4 mmol/L (-2.0-2.0); BG CARBOXYHEMOGLOBIN 0.3 % (0.5-1.5); BG DEOXYHEMOGLOBIN 2.3 % (0.0-5.0); BG HCO3 ACT 30.7 mmol/L (22.0-26.0); BG METHEMOGLOBIN 0.2 % (0.0-1.5); BG OXYGEN SATURATION 97.7 % (92.0-98.5); BG OXYHEMOGLOBIN 97.2 % (94.0-97.0); BG PCO2 38.6 mmHg (35.0-45.0); BG PH 7.519 (7.350-7.450); BG PO2 98.7 mmHg (75.0-100.0); BG SAMPLE SITE RIGHT RADIAL; BG VENT MODE VENT - AC
[2022-03-19] MEDS: LEVETIRACETAM 1,500 MG in SODIUM CHLORIDE 0.9% 100 ML IV SCH ×2 (09:47→22:15)
[2022-03-19] MEDS: BICALUTAMIDE 50 MG TABLET PO SCH (09:47)
[2022-03-19] MEDS: PANTOPRAZOLE SODIUM 40 MG/VIAL IV SCH (09:47)
[2022-03-19] MEDS: DESMOPRESSIN ACETATE 0.1MG TABLET PO SCH ×2 (09:48→22:15)
[2022-03-19] MEDS: METOPROLOL TARTRATE 100MG TABLET PO SCH ×2 (09:48→22:17)
[2022-03-19] MEDS: LOSARTAN POTASSIUM 100 MG TABLET PO SCH (09:48)
[2022-03-19] MEDS: NIFEDIPINE XL 90MG TAB PO SCH (09:50)
[2022-03-19] MEDS: FENTANYL 2500MCG/250ML PMX 250 ML IV PRN (09:54)
[2022-03-19 12:18] LABS: NUCLEATED RED BLOOD CELLS 1 /100 WBC
[2022-03-19 12:19] LABS: PLATELET 68 x1000/uL (130-400); PLATELET ESTIMATE DECREASED
[2022-03-19 12:20] LABS: MEAN PLATELET VOLUME 8.2 fl (7.4-10.4)
[2022-03-19] MEDS: DEXT 5%/LACTATED RINGERS 1,000 ML IV SCH (13:30)
[2022-03-20] VITALS (86 sets, daily range): BP systolic 84–150; BP diastolic 53–86
[2022-03-20] MEDS: MIDAZOLAM 100MG/100ML PREMIX IV PRN ×2 (01:08→19:09)
[2022-03-20] MEDS: NICARDIPINE 100 MG in SODIUM CHLORIDE 0.9% 100 ML IV PRN ×2 (01:08→19:10)
[2022-03-20 05:38] LABS: HEMATOCRIT. 29.9 % (42.0-52.0); HEMOGLOBIN. 9.9 g/dL (14.0-18.0); MEAN CORPUSCULAR VOLUME 90.9 fL (80.0-94.0); MEAN PLATELET VOLUME 8.3 fl (7.4-10.4); PLATELET 89 x1000/uL (130-400); RED BLOOD CELL COUNT 3.29 mill/uL (4.7-6.1); RED CELL DISTRIBUTION WIDTH 15.1 % (11.6-14.6)
[2022-03-20 05:51] LABS: PROTHROMBIN TIME 10.6 sec (9.6-11.0)
[2022-03-20] MEDS: HYDRALAZINE HCL 25MG TABLET PO SCH ×3 (06:00→22:26)
[2022-03-20 06:03] LABS: CHLORIDE 95 mEq/L (98-107)
[2022-03-20] MEDS: PHENYTOIN SODIUM 100MG/2ML VIAL IV SCH ×3 (07:28→22:26)
[2022-03-20 07:42] LABS: NUCLEATED RED BLOOD CELLS 1 /100 WBC
[2022-03-20 07:43] LABS: PLATELET ESTIMATE DECREASED
[2022-03-20 08:03] LABS: BG BASE EXCESS 6.3 mmol/L (-2.0-2.0); BG CARBOXYHEMOGLOBIN 0.2 % (0.5-1.5); BG DEOXYHEMOGLOBIN 1.4 % (0.0-5.0); BG FRACTION INSPIRED OXYGEN 80; BG HCO3 ACT 29.5 mmol/L (22.0-26.0); BG METHEMOGLOBIN 0.9 % (0.0-1.5); BG OXYGEN SATURATION 98.6 % (92.0-98.5); BG OXYHEMOGLOBIN 97.5 % (94.0-97.0); BG PCO2 37.1 mmHg (35.0-45.0); BG PH 7.519 (7.350-7.450); BG PO2 165.9 mmHg (75.0-100.0); BG SAMPLE SITE RIGHT RADIAL; BG TOTAL HEMOGLOBIN 9.8 g/dL (12.0-18.0); BG VENT MODE VENT - AC
[2022-03-20] MEDS: DESMOPRESSIN ACETATE 0.1MG TABLET PO SCH ×2 (09:00→20:44)
[2022-03-20] MEDS: BICALUTAMIDE 50 MG TABLET PO SCH (09:00)
[2022-03-20] MEDS: LOSARTAN POTASSIUM 100 MG TABLET PO SCH (09:00)
[2022-03-20] MEDS: METOPROLOL TARTRATE 100MG TABLET PO SCH ×2 (09:00→20:45)
[2022-03-20] MEDS: NIFEDIPINE XL 90MG TAB PO SCH (09:00)
[2022-03-20] MEDS: PANTOPRAZOLE SODIUM 40 MG/VIAL IV SCH (09:38)
[2022-03-20] MEDS: LEVETIRACETAM 1,500 MG in SODIUM CHLORIDE 0.9% 100 ML IV SCH ×2 (09:39→20:45)
[2022-03-20] MEDS: DEXT 5%/LACTATED RINGERS 1,000 ML IV SCH (09:41)
[2022-03-20] MEDS ORDERED: LIDOCAINE HCL/EPINEPHRINE 1%-EPI 1:100,000 20 ML VIAL ONE (12:21)
[2022-03-20] MEDS: FENTANYL 2500MCG/250ML PMX 250 ML IV PRN (13:21)
[2022-03-20] MEDS ORDERED: BUPIVACAINE HCL 0.5% (5MG/ML) 50ML ONE (13:52)
[2022-03-20] MEDS ORDERED: ROCURONIUM BROMIDE 10MG/ML VIAL 5ML IV ONE ×2 (14:16→14:23)
[2022-03-20] MEDS: IPRATROPIUM/ALBUTEROL 0.5-3(2.5)MG/3ML NEB HHN SCH (16:09)
[2022-03-20] MEDS: SODIUM CHLORIDE 3% FOR INH 4ML UD NEB INH SCH ×2 (16:09→21:45)
[2022-03-20] MEDS: ACETYLCYSTEINE 100MG/ML 10% VIAL 4ML INH SCH (16:09)
[2022-03-21] VITALS (99 sets, daily range): BP systolic 96–179; BP diastolic 54–171
[2022-03-21] MEDS: NICARDIPINE 100 MG in SODIUM CHLORIDE 0.9% 100 ML IV PRN ×2 (03:12→10:24)
[2022-03-21] MEDS: DEXT 5%/LACTATED RINGERS 1,000 ML IV SCH ×3 (03:13→21:18)
[2022-03-21] MEDS: SODIUM CHLORIDE 3% FOR INH 4ML UD NEB INH SCH ×2 (03:45→21:02)
[2022-03-21] MEDS: PHENYTOIN SODIUM 100MG/2ML VIAL IV SCH ×3 (05:37→22:27)
[2022-03-21] MEDS: HYDRALAZINE HCL 25MG TABLET PO SCH ×3 (05:37→22:27)
[2022-03-21] MEDS: ACETYLCYSTEINE 100MG/ML 10% VIAL 4ML INH SCH ×2 (08:28→16:45)
[2022-03-21] MEDS: IPRATROPIUM/ALBUTEROL 0.5-3(2.5)MG/3ML NEB HHN SCH ×4 (08:28→20:47)
[2022-03-21] MEDS: PANTOPRAZOLE SODIUM 40 MG/VIAL IV SCH (09:22)
[2022-03-21] MEDS: NIFEDIPINE XL 90MG TAB PO SCH (09:26)
[2022-03-21] MEDS: BICALUTAMIDE 50 MG TABLET PO SCH (09:26)
[2022-03-21] MEDS: DESMOPRESSIN ACETATE 0.1MG TABLET PO SCH ×2 (09:26→21:17)
[2022-03-21] MEDS: METOPROLOL TARTRATE 100MG TABLET PO SCH ×2 (09:26→21:17)
[2022-03-21] MEDS: LEVETIRACETAM 1,500 MG in SODIUM CHLORIDE 0.9% 100 ML IV SCH ×2 (09:27→21:16)
[2022-03-21] MEDS: LOSARTAN POTASSIUM 100 MG TABLET PO SCH (09:27)
[2022-03-21] MEDS: FENTANYL 2500MCG/250ML PMX 250 ML IV PRN (09:47)
[2022-03-21 10:01] LABS: BASOPHILS % 0.7 % (0.0-2.0); EOSINOPHILS % 0.4 % (0.0-5.0); HEMATOCRIT. 24.4 % (42.0-52.0); LYMPHOCYTES % 15.9 % (20.0-50.0); MEAN CORPUSCULAR HEMOGLOBIN 30.1 pg (28.0-32.0); MEAN CORPUSCULAR VOLUME 91.2 fL (80.0-94.0); MEAN PLATELET VOLUME 7.3 fl (7.4-10.4); MONOCYTES % 3.1 % (2.0-8.0); NEUTROPHILS % 79.9 % (40.0-76.0); PLATELET 66 x1000/uL (130-400); RED BLOOD CELL COUNT 2.68 mill/uL (4.7-6.1); RED CELL DISTRIBUTION WIDTH 15.1 % (11.6-14.6)
[2022-03-21 10:10] LABS: CHLORIDE 96 mEq/L (98-107)
[2022-03-21] MEDS: ACETAMINOPHEN 650MG/20.3ML UDC PO PRN ×2 (14:45→22:26)
[2022-03-21] MEDS: MIDAZOLAM HCL 100 MG in SODIUM CHLORIDE 0.9% 100 ML IV PRN (17:29)
[2022-03-21] MEDS ORDERED: QUETIAPINE FUMARATE 25MG TABLET PO SCH (21:00)
[2022-03-21] MEDS: QUETIAPINE FUMARATE 25MG TABLET PO SCH (21:16)
[2022-03-22] VITALS (64 sets, daily range): BP systolic 100–176; BP diastolic 57–141
[2022-03-22] MEDS: ACETYLCYSTEINE 100MG/ML 10% VIAL 4ML INH SCH ×4 (01:06→20:40)
[2022-03-22] MEDS: IPRATROPIUM/ALBUTEROL 0.5-3(2.5)MG/3ML NEB HHN SCH ×5 (01:06→20:00)
[2022-03-22] MEDS: SODIUM CHLORIDE 3% FOR INH 4ML UD NEB INH SCH ×2 (01:11→08:33)
[2022-03-22] MEDS: NICARDIPINE 100 MG in SODIUM CHLORIDE 0.9% 100 ML IV PRN ×3 (03:34→10:15)
[2022-03-22] MEDS: ACETAMINOPHEN 650MG/20.3ML UDC PO PRN ×2 (04:30→20:55)
[2022-03-22] MEDS: PHENYTOIN SODIUM 100MG/2ML VIAL IV SCH ×3 (05:14→21:00)
[2022-03-22] MEDS: HYDRALAZINE HCL 25MG TABLET PO SCH ×3 (05:14→21:00)
[2022-03-22 05:36] LABS: BASOPHILS % 0.3 % (0.0-2.0); EOSINOPHILS % 0.5 % (0.0-5.0); HEMATOCRIT. 21.7 % (42.0-52.0); HEMOGLOBIN. 7.2 g/dL (14.0-18.0); LYMPHOCYTES % 12.2 % (20.0-50.0); MEAN CORPUSCULAR HEMOGLOBIN 30.3 pg (28.0-32.0); MEAN CORPUSCULAR VOLUME 90.9 fL (80.0-94.0); MEAN PLATELET VOLUME 8.1 fl (7.4-10.4); MONOCYTES % 2.3 % (2.0-8.0); NEUTROPHILS % 84.7 % (40.0-76.0); PLATELET 98 x1000/uL (130-400); RED BLOOD CELL COUNT 2.39 mill/uL (4.7-6.1); RED CELL DISTRIBUTION WIDTH 14.9 % (11.6-14.6)
[2022-03-22 05:46] LABS: CHLORIDE 98 mEq/L (98-107)
[2022-03-22] MEDS: FENTANYL 2500MCG/250ML PMX 250 ML IV PRN ×2 (07:52→08:05)
[2022-03-22 08:21] LABS: BG CARBOXYHEMOGLOBIN 0.3 % (0.5-1.5); BG DEOXYHEMOGLOBIN 1.3 % (0.0-5.0); BG FRACTION INSPIRED OXYGEN 40; BG METHEMOGLOBIN 0.2 % (0.0-1.5); BG OXYGEN SATURATION 98.7 % (92.0-98.5); BG OXYHEMOGLOBIN 98.2 % (94.0-97.0); BG PCO2 40.6 mmHg (35.0-45.0); BG PH 7.472 (7.350-7.450); BG PO2 149.7 mmHg (75.0-100.0); BG SAMPLE SITE LEFT RADIAL; BG TOTAL HEMOGLOBIN 9.1 g/dL (12.0-18.0); BG VENT MODE VENT - AC
[2022-03-22] MEDS: MIDAZOLAM HCL 100 MG in SODIUM CHLORIDE 0.9% 100 ML IV PRN ×4 (08:21→21:03)
[2022-03-22] MEDS: LEVETIRACETAM 1,500 MG in SODIUM CHLORIDE 0.9% 100 ML IV SCH ×2 (08:31→20:55)
[2022-03-22] MEDS: METOPROLOL TARTRATE 100MG TABLET PO SCH ×2 (08:32→20:55)
[2022-03-22] MEDS: LOSARTAN POTASSIUM 100 MG TABLET PO SCH (08:32)
[2022-03-22] MEDS: NIFEDIPINE XL 90MG TAB PO SCH (08:32)
[2022-03-22] MEDS: PANTOPRAZOLE SODIUM 40 MG/VIAL IV SCH (08:33)
[2022-03-22] MEDS: BICALUTAMIDE 50 MG TABLET PO SCH (08:33)
[2022-03-22] MEDS: QUETIAPINE FUMARATE 25MG TABLET PO SCH ×2 (08:33→20:55)
[2022-03-22] MEDS: DESMOPRESSIN ACETATE 0.1MG TABLET PO SCH ×2 (08:33→20:55)
[2022-03-22] MEDS ORDERED: AMIODARONE HCL 150 MG in DEXT 5% WATER 100 ML IV NR (12:00)
[2022-03-22] MEDS: AMIODARONE HCL 900 MG in DEXT 5% WATER 482 ML IV PRN (13:35)
[2022-03-22] MEDS: DEXT 5%/LACTATED RINGERS 1,000 ML IV SCH (17:42)
[2022-03-23] VITALS (95 sets, daily range): BP systolic 97–173; BP diastolic 50–158
[2022-03-23] MEDS: ACETYLCYSTEINE 100MG/ML 10% VIAL 4ML INH SCH (00:27)
[2022-03-23] MEDS: IPRATROPIUM/ALBUTEROL 0.5-3(2.5)MG/3ML NEB HHN SCH ×4 (00:27→20:00)
[2022-03-23] MEDS: ACETAMINOPHEN 650MG/20.3ML UDC PO PRN (04:13)
[2022-03-23] MEDS: HYDRALAZINE HCL 25MG TABLET PO SCH ×3 (05:33→21:03)
[2022-03-23] MEDS: PHENYTOIN SODIUM 100MG/2ML VIAL IV SCH ×3 (05:33→21:03)
[2022-03-23 05:46] LABS: BASOPHILS % 0.6 % (0.0-2.0); EOSINOPHILS % 2.6 % (0.0-5.0); MEAN CORPUSCULAR HEMOGLOBIN 30.6 pg (28.0-32.0); MEAN CORPUSCULAR VOLUME 92.7 fL (80.0-94.0); MEAN PLATELET VOLUME 8.9 fl (7.4-10.4); MONOCYTES % 2.2 % (2.0-8.0); NEUTROPHILS % 81.6 % (40.0-76.0); PLATELET 78 x1000/uL (130-400); RED BLOOD CELL COUNT 2.11 mill/uL (4.7-6.1)
[2022-03-23 06:02] LABS: CHLORIDE 95 mEq/L (98-107)
[2022-03-23 06:25] LABS: HEMATOCRIT. 19.6 % (42.0-52.0); HEMOGLOBIN. 6.5 g/dL (14.0-18.0)
[2022-03-23] MEDS: MIDAZOLAM HCL 100 MG in SODIUM CHLORIDE 0.9% 100 ML IV PRN (06:42)
[2022-03-23] MEDS: FENTANYL 2500MCG/250ML PMX 250 ML IV PRN (07:48)
[2022-03-23] MEDS: LOSARTAN POTASSIUM 100 MG TABLET PO SCH (08:24)
[2022-03-23] MEDS: PANTOPRAZOLE SODIUM 40 MG/VIAL IV SCH (08:25)
[2022-03-23] MEDS: BICALUTAMIDE 50 MG TABLET PO SCH (08:25)
[2022-03-23] MEDS: NIFEDIPINE XL 90MG TAB PO SCH (08:25)
[2022-03-23] MEDS: DESMOPRESSIN ACETATE 0.1MG TABLET PO SCH ×2 (08:26→20:39)
[2022-03-23] MEDS: QUETIAPINE FUMARATE 25MG TABLET PO SCH ×2 (08:26→20:39)
[2022-03-23] MEDS: METOPROLOL TARTRATE 100MG TABLET PO SCH ×2 (08:26→20:39)
[2022-03-23] MEDS: LEVETIRACETAM 1,500 MG in SODIUM CHLORIDE 0.9% 100 ML IV SCH ×2 (09:52→21:40)
[2022-03-23] MEDS: CEFEPIME 2,000 MG in DEXT 5% WATER 100 ML IV SCH ×2 (11:39→21:41)
[2022-03-23] MEDS ORDERED: VANCOMYCIN 1,750 MG in DEXT 5% WATER 500 ML IV NR (12:00)
[2022-03-23] MEDS: DEXT 5%/LACTATED RINGERS 1,000 ML IV SCH (16:31)
[2022-03-23] MEDS ORDERED: VANCOMYCIN 1GM PMX (XELLIA) 200 ML IV SCH (20:00)
[2022-03-23] MEDS: VANCOMYCIN 1G PREMIX 200 ML IV SCH (20:39)
[2022-03-24] VITALS (77 sets, daily range): BP systolic 93–185; BP diastolic 30–96
[2022-03-24] MEDS: ACETAMINOPHEN 650MG/20.3ML UDC PO PRN ×2 (00:18→12:22)
[2022-03-24] MEDS: ACETYLCYSTEINE 100MG/ML 10% VIAL 4ML INH SCH ×2 (00:21→08:37)
[2022-03-24] MEDS: FENTANYL 2500MCG/250ML PMX 250 ML IV PRN ×2 (02:00→20:07)
[2022-03-24] MEDS: IPRATROPIUM/ALBUTEROL 0.5-3(2.5)MG/3ML NEB HHN SCH ×6 (04:00→20:33)
[2022-03-24] MEDS: VANCOMYCIN 1G PREMIX 200 ML IV SCH (04:11)
[2022-03-24 05:49] LABS: INR 1.2; PROTHROMBIN TIME 12.3 sec (9.6-11.0)
[2022-03-24 06:00] LABS: HEMATOCRIT. 22.3 % (42.0-52.0); HEMOGLOBIN. 7.8 g/dL (14.0-18.0); MEAN CORPUSCULAR HEMOGLOBIN 30.8 pg (28.0-32.0); MEAN CORPUSCULAR VOLUME 88.1 fL (80.0-94.0); MEAN PLATELET VOLUME 7.9 fl (7.4-10.4); PLATELET 70 x1000/uL (130-400); RED BLOOD CELL COUNT 2.53 mill/uL (4.7-6.1); RED CELL DISTRIBUTION WIDTH 16.4 % (11.6-14.6)
[2022-03-24] MEDS: PHENYTOIN SODIUM 100MG/2ML VIAL IV SCH ×3 (06:04→23:35)
[2022-03-24] MEDS: HYDRALAZINE HCL 25MG TABLET PO SCH ×3 (06:04→23:36)
[2022-03-24] MEDS: AMIODARONE HCL 900 MG in DEXT 5% WATER 482 ML IV PRN (06:05)
[2022-03-24 06:23] LABS: CHLORIDE 95 mEq/L (98-107)
[2022-03-24 07:47] LABS: BG CARBOXYHEMOGLOBIN 0.3 % (0.5-1.5); BG DEOXYHEMOGLOBIN 2.5 % (0.0-5.0); BG METHEMOGLOBIN 0.4 % (0.0-1.5); BG OXYGEN SATURATION 97.5 % (92.0-98.5); BG OXYHEMOGLOBIN 96.8 % (94.0-97.0); BG PCO2 33.3 mmHg (35.0-45.0); BG PH 7.511 (7.350-7.450); BG PO2 101.7 mmHg (75.0-100.0); BG SAMPLE SITE RIGHT RADIAL; BG TOTAL HEMOGLOBIN 8.1 g/dL (12.0-18.0); BG VENT MODE VENT - AC
[2022-03-24 09:05] LABS: CHLORIDE 95 mEq/L (98-107)
[2022-03-24] MEDS: QUETIAPINE FUMARATE 25MG TABLET PO SCH ×2 (09:19→20:29)
[2022-03-24] MEDS: METOPROLOL TARTRATE 100MG TABLET PO SCH ×2 (09:19→20:30)
[2022-03-24] MEDS: DESMOPRESSIN ACETATE 0.1MG TABLET PO SCH ×2 (09:19→20:29)
[2022-03-24] MEDS: PANTOPRAZOLE SODIUM 40 MG/VIAL IV SCH (09:19)
[2022-03-24] MEDS: NIFEDIPINE XL 90MG TAB PO SCH (09:20)
[2022-03-24] MEDS: BICALUTAMIDE 50 MG TABLET PO SCH (09:20)
[2022-03-24] MEDS: LEVETIRACETAM 1,500 MG in SODIUM CHLORIDE 0.9% 100 ML IV SCH ×2 (09:25→21:19)
[2022-03-24] MEDS: CEFEPIME 2,000 MG in DEXT 5% WATER 100 ML IV SCH (09:25)
[2022-03-24] MEDS: DEXT 5%/LACTATED RINGERS 1,000 ML IV SCH (09:26)
[2022-03-24 09:30] LABS: NUCLEATED RED BLOOD CELLS 2 /100 WBC; PLATELET ESTIMATE DECREASED
[2022-03-24] MEDS: LOSARTAN POTASSIUM 100 MG TABLET PO SCH (09:30)
[2022-03-24] MEDS: AMIODARONE HCL 200 MG TABLET PO SCH ×2 (11:37→20:29)
[2022-03-24] MEDS: VANCOMYCIN 1.25GM PMX (XELLIA) 250 ML IV SCH ×2 (13:58→23:36)
[2022-03-24] MEDS: MEROPENEM 1,000 MG in SODIUM CHLORIDE 0.9% 100 ML IV SCH ×2 (15:32→23:36)
[2022-03-24] MEDS: LORAZEPAM 2MG/ML CPJ IV PRN (23:12)
[2022-03-25] VITALS (83 sets, daily range): BP systolic 99–175; BP diastolic 44–96
[2022-03-25] MEDS: ACETYLCYSTEINE 100MG/ML 10% VIAL 4ML INH SCH ×3 (00:28→10:26)
[2022-03-25] MEDS: IPRATROPIUM/ALBUTEROL 0.5-3(2.5)MG/3ML NEB HHN SCH ×3 (00:28→10:26)
[2022-03-25] MEDS: DEXT 5%/LACTATED RINGERS 1,000 ML IV SCH ×2 (00:50→17:26)
[2022-03-25] MEDS: PHENYTOIN SODIUM 100MG/2ML VIAL IV SCH ×3 (05:29→21:46)
[2022-03-25] MEDS: HYDRALAZINE HCL 25MG TABLET PO SCH ×3 (05:29→21:47)
[2022-03-25] MEDS: VANCOMYCIN 1.25GM PMX (XELLIA) 250 ML IV SCH ×3 (05:49→23:29)
[2022-03-25 06:02] LABS: MEAN CORPUSCULAR HEMOGLOBIN 29.7 pg (28.0-32.0); MEAN CORPUSCULAR VOLUME 88.8 fL (80.0-94.0); MEAN PLATELET VOLUME 7.8 fl (7.4-10.4); PLATELET 60 x1000/uL (130-400); RED BLOOD CELL COUNT 2.32 mill/uL (4.7-6.1); RED CELL DISTRIBUTION WIDTH 16.1 % (11.6-14.6)
[2022-03-25 06:16] LABS: HEMOGLOBIN. 6.9 g/dL (14.0-18.0)
[2022-03-25 06:17] LABS: HEMATOCRIT. 20.6 % (42.0-52.0)
[2022-03-25 06:24] LABS: CHLORIDE 98 mEq/L (98-107)
[2022-03-25] MEDS: ACETAMINOPHEN 650MG/20.3ML UDC PO PRN ×2 (07:59→21:46)
[2022-03-25 08:47] LABS: BG BASE EXCESS 2.6 mmol/L (-2.0-2.0); BG CARBOXYHEMOGLOBIN 0.3 % (0.5-1.5); BG FRACTION INSPIRED OXYGEN 30; BG METHEMOGLOBIN 0.3 % (0.0-1.5); BG OXYHEMOGLOBIN 97.4 % (94.0-97.0); BG PCO2 29.6 mmHg (35.0-45.0); BG PH 7.545 (7.350-7.450); BG PO2 103.3 mmHg (75.0-100.0); BG SAMPLE SITE RIGHT RADIAL; BG TOTAL HEMOGLOBIN 7.5 g/dL (12.0-18.0); BG VENT MODE VENT - AC
[2022-03-25] MEDS: PANTOPRAZOLE SODIUM 40 MG/VIAL IV SCH (09:06)
[2022-03-25] MEDS: MEROPENEM 1,000 MG in SODIUM CHLORIDE 0.9% 100 ML IV SCH ×3 (09:07→22:35)
[2022-03-25] MEDS: QUETIAPINE FUMARATE 25MG TABLET PO SCH (09:07)
[2022-03-25] MEDS: LEVETIRACETAM 1,500 MG in SODIUM CHLORIDE 0.9% 100 ML IV SCH ×2 (09:07→21:47)
[2022-03-25] MEDS: LOSARTAN POTASSIUM 100 MG TABLET PO SCH (09:07)
[2022-03-25] MEDS: AMIODARONE HCL 200 MG TABLET PO SCH ×2 (09:08→21:47)
[2022-03-25] MEDS: DESMOPRESSIN ACETATE 0.1MG TABLET PO SCH ×2 (09:08→21:46)
[2022-03-25] MEDS: METOPROLOL TARTRATE 100MG TABLET PO SCH ×2 (09:08→21:47)
[2022-03-25] MEDS: NIFEDIPINE XL 90MG TAB PO SCH (09:12)
[2022-03-25] MEDS: BICALUTAMIDE 50 MG TABLET PO SCH (09:25)
[2022-03-25] MEDS ORDERED: POTASSIUM CHLORIDE 20MEQ TABLET SR PO NR (09:30)
[2022-03-25] MEDS: MORPHINE SULFATE 2 MG/ML CPJ (NOT FOR IM USE) IV PRN ×2 (12:21→16:33)
[2022-03-25 14:18] LABS: NUCLEATED RED BLOOD CELLS 2 /100 WBC
[2022-03-25 14:21] LABS: PLATELET ESTIMATE DECREASED
[2022-03-25] MEDS: LORAZEPAM 2MG/ML CPJ IV PRN ×2 (15:07→22:34)
[2022-03-25 19:18] LABS: HEMATOCRIT 26.8 % (42.0-52.0); HEMOGLOBIN 8.7 g/dL (14.0-18.0)
[2022-03-25] MEDS: QUETIAPINE FUMARATE 50MG TABLET PO SCH (21:49)
[2022-03-25] MEDS: FENTANYL 2500MCG/250ML PMX 250 ML IV PRN (21:50)
[2022-03-26] VITALS (55 sets, daily range): BP systolic 94–143; BP diastolic 42–82
[2022-03-26 05:33] LABS: CHLORIDE 99 mEq/L (98-107)
[2022-03-26] MEDS: HYDRALAZINE HCL 25MG TABLET PO SCH ×3 (05:45→22:00)
[2022-03-26] MEDS: PHENYTOIN SODIUM 100MG/2ML VIAL IV SCH ×3 (05:45→22:34)
[2022-03-26 06:58] LABS: HEMATOCRIT. 23.1 % (42.0-52.0); HEMOGLOBIN. 7.9 g/dL (14.0-18.0); MEAN CORPUSCULAR HEMOGLOBIN 30.1 pg (28.0-32.0); MEAN CORPUSCULAR VOLUME 88.3 fL (80.0-94.0); MEAN PLATELET VOLUME 7.2 fl (7.4-10.4); RED BLOOD CELL COUNT 2.62 mill/uL (4.7-6.1); RED CELL DISTRIBUTION WIDTH 15.9 % (11.6-14.6)
[2022-03-26] MEDS: MEROPENEM 1,000 MG in SODIUM CHLORIDE 0.9% 100 ML IV SCH ×2 (07:06→15:19)
[2022-03-26 07:21] LABS: PLATELET 49 x1000/uL (130-400)
[2022-03-26] MEDS: IPRATROPIUM/ALBUTEROL 0.5-3(2.5)MG/3ML NEB HHN SCH ×4 (08:14→21:16)
[2022-03-26] MEDS: BICALUTAMIDE 50 MG TABLET PO SCH (09:00)
[2022-03-26] MEDS: METOPROLOL TARTRATE 100MG TABLET PO SCH ×2 (09:00→21:43)
[2022-03-26] MEDS: LEVETIRACETAM 1,500 MG in SODIUM CHLORIDE 0.9% 100 ML IV SCH ×2 (09:59→21:25)
[2022-03-26] MEDS: PANTOPRAZOLE SODIUM 40 MG/VIAL IV SCH (10:00)
[2022-03-26] MEDS: VANCOMYCIN 1.25GM PMX (XELLIA) 250 ML IV SCH (10:00)
[2022-03-26] MEDS: NIFEDIPINE XL 90MG TAB PO SCH (10:01)
[2022-03-26] MEDS: DESMOPRESSIN ACETATE 0.1MG TABLET PO SCH ×2 (10:02→21:43)
[2022-03-26] MEDS: AMIODARONE HCL 200 MG TABLET PO SCH ×2 (10:02→21:25)
[2022-03-26] MEDS: QUETIAPINE FUMARATE 50MG TABLET PO SCH ×2 (10:02→21:25)
[2022-03-26] MEDS: LOSARTAN POTASSIUM 100 MG TABLET PO SCH (10:02)
[2022-03-26] MEDS ORDERED: PROPOFOL 10MG/ML 100ML 100 ML IV PRN (11:15)
[2022-03-26 11:35] LABS: NUCLEATED RED BLOOD CELLS 2 /100 WBC; PLATELET ESTIMATE MARKEDLY DECREASED
[2022-03-26] MEDS: DEXT 5%/LACTATED RINGERS 1,000 ML IV SCH (11:35)
[2022-03-26] MEDS: FENTANYL 2500MCG/250ML PMX 250 ML IV PRN (15:15)
[2022-03-26] MEDS: FILGRASTIM-TBO 480 MCG/0.8 ML SYRINGE SQ SCH (21:25)
[2022-03-27] VITALS (65 sets, daily range): BP systolic 109–173; BP diastolic 52–117
[2022-03-27] MEDS: IPRATROPIUM/ALBUTEROL 0.5-3(2.5)MG/3ML NEB HHN SCH ×6 (00:13→20:27)
[2022-03-27] MEDS: MEROPENEM 1,000 MG in SODIUM CHLORIDE 0.9% 100 ML IV SCH ×4 (00:25→23:48)
[2022-03-27] MEDS: DEXT 5%/LACTATED RINGERS 1,000 ML IV SCH (02:43)
[2022-03-27 05:13] LABS: HEMATOCRIT. 21.8 % (42.0-52.0); HEMOGLOBIN. 7.1 g/dL (14.0-18.0); MEAN CORPUSCULAR HEMOGLOBIN 29.2 pg (28.0-32.0); MEAN CORPUSCULAR VOLUME 89.6 fL (80.0-94.0); MEAN PLATELET VOLUME 7.4 fl (7.4-10.4); RED BLOOD CELL COUNT 2.43 mill/uL (4.7-6.1); RED CELL DISTRIBUTION WIDTH 16.2 % (11.6-14.6)
[2022-03-27 05:24] LABS: INR 1.1; PROTHROMBIN TIME 11.3 sec (9.6-11.0)
[2022-03-27 05:30] LABS: CHLORIDE 102 mEq/L (98-107)
[2022-03-27 05:35] LABS: PLATELET 48 x1000/uL (130-400)
[2022-03-27] MEDS: PHENYTOIN SODIUM 100MG/2ML VIAL IV SCH ×3 (06:08→21:38)
[2022-03-27] MEDS: HYDRALAZINE HCL 25MG TABLET PO SCH ×3 (06:08→21:38)
[2022-03-27] MEDS: MORPHINE SULFATE 2 MG/ML CPJ (NOT FOR IM USE) IV PRN ×3 (06:21→23:40)
[2022-03-27 07:31] LABS: NUCLEATED RED BLOOD CELLS 6 /100 WBC
[2022-03-27 07:32] LABS: PLATELET ESTIMATE DECREASED
[2022-03-27 08:15] LABS: BG BASE EXCESS 1.8 mmol/L (-2.0-2.0); BG CARBOXYHEMOGLOBIN 0.3 % (0.5-1.5); BG DEOXYHEMOGLOBIN 2.1 % (0.0-5.0); BG HCO3 ACT 24.4 mmol/L (22.0-26.0); BG METHEMOGLOBIN 0.3 % (0.0-1.5); BG OXYGEN SATURATION 97.9 % (92.0-98.5); BG OXYHEMOGLOBIN 97.3 % (94.0-97.0); BG PCO2 29.5 mmHg (35.0-45.0); BG PH 7.535 (7.350-7.450); BG PO2 106.1 mmHg (75.0-100.0); BG SAMPLE SITE RIGHT RADIAL; BG TOTAL HEMOGLOBIN 7.4 g/dL (12.0-18.0); BG VENT MODE VENT - AC
[2022-03-27] MEDS: AMIODARONE HCL 200 MG TABLET PO SCH ×2 (08:48→21:34)
[2022-03-27] MEDS: LOSARTAN POTASSIUM 100 MG TABLET PO SCH (08:48)
[2022-03-27] MEDS: QUETIAPINE FUMARATE 50MG TABLET PO SCH ×2 (08:49→21:33)
[2022-03-27] MEDS: METOPROLOL TARTRATE 100MG TABLET PO SCH ×2 (08:49→21:34)
[2022-03-27] MEDS: NIFEDIPINE XL 90MG TAB PO SCH (08:49)
[2022-03-27] MEDS: PANTOPRAZOLE SODIUM 40 MG/VIAL IV SCH (08:49)
[2022-03-27] MEDS: BICALUTAMIDE 50 MG TABLET PO SCH (09:00)
[2022-03-27] MEDS: DESMOPRESSIN ACETATE 0.1MG TABLET PO SCH ×2 (09:00→21:00)
[2022-03-27] MEDS: LEVETIRACETAM 1,500 MG in SODIUM CHLORIDE 0.9% 100 ML IV SCH ×2 (09:08→21:34)
[2022-03-27] MEDS ORDERED: SODIUM CHLORIDE 0.9% 250 ML IV ONE (09:30)
[2022-03-27] MEDS ORDERED: DEXT 5%/0.9% NACL 1,000 ML IV ONE (09:45)
[2022-03-27] MEDS: FENTANYL 2500MCG/250ML PMX 250 ML IV PRN (11:36)
[2022-03-27] MEDS: KCL 20MEQ/100ML PREMIX 100 ML IV SCH ×2 (11:43→13:08)
[2022-03-27] MEDS ORDERED: CEFAZOLIN 1000MG PREMIX 50 ML IV NR (15:00)
[2022-03-27] MEDS ORDERED: FENTANYL CITRATE/PF 50MCG/ML 2ML VIAL ONE ×2 (16:16→16:57)
[2022-03-27] MEDS ORDERED: MIDAZOLAM HCL 5 MG/5 ML VIAL ONE ×3 (16:17→16:57)
[2022-03-27] MEDS ORDERED: PROPOFOL 200MG/20ML VIAL IV ONE (16:57)
[2022-03-27] MEDS ORDERED: ROCURONIUM BROMIDE 10MG/ML VIAL 5ML IV ONE (16:58)
[2022-03-27 17:17] LABS: HEMOGLOBIN 5.4 g/dL (14.0-18.0); INR 1.1; PROTHROMBIN TIME 12.2 sec (9.6-11.0)
[2022-03-27 17:22] LABS: HEMATOCRIT 16.7 % (42.0-52.0)
[2022-03-27 19:25] LABS: BASOPHILS % 0.6 % (0.0-2.0); EOSINOPHILS % 0.9 % (0.0-5.0); HEMATOCRIT. 23.9 % (42.0-52.0); HEMOGLOBIN. 7.9 g/dL (14.0-18.0); LYMPHOCYTES % 13.7 % (20.0-50.0); MEAN CORPUSCULAR HEMOGLOBIN 29.8 pg (28.0-32.0); MEAN CORPUSCULAR VOLUME 90.2 fL (80.0-94.0); MEAN PLATELET VOLUME 7.2 fl (7.4-10.4); MONOCYTES % 1.8 % (2.0-8.0); RED BLOOD CELL COUNT 2.65 mill/uL (4.7-6.1); RED CELL DISTRIBUTION WIDTH 15.8 % (11.6-14.6)
[2022-03-27 19:31] LABS: PLATELET 49 x1000/uL (130-400)
[2022-03-27 19:39] LABS: CHLORIDE 102 mEq/L (98-107)
[2022-03-27 19:41] LABS: INR 1.1; PROTHROMBIN TIME 11.4 sec (9.6-11.0)
[2022-03-27] MEDS: FILGRASTIM-TBO 480 MCG/0.8 ML SYRINGE SQ SCH (21:48)
[2022-03-28] VITALS (58 sets, daily range): BP systolic 98–169; BP diastolic 38–97
[2022-03-28] MEDS: IPRATROPIUM/ALBUTEROL 0.5-3(2.5)MG/3ML NEB HHN SCH ×6 (00:25→19:41)
[2022-03-28] MEDS: METOCLOPRAMIDE HCL 10MG/2ML VIAL IV SCH ×5 (00:48→23:13)
[2022-03-28] MEDS: HYDRALAZINE 20MG/ML VIAL IV PRN (01:36)
[2022-03-28] MEDS: LORAZEPAM 2MG/ML CPJ IV PRN ×2 (01:36→21:01)
[2022-03-28] MEDS: MORPHINE SULFATE 2 MG/ML CPJ (NOT FOR IM USE) IV PRN ×2 (03:22→17:14)
[2022-03-28] MEDS: HYDRALAZINE HCL 25MG TABLET PO SCH ×3 (05:27→21:18)
[2022-03-28] MEDS: PHENYTOIN SODIUM 100MG/2ML VIAL IV SCH ×3 (05:27→21:18)
[2022-03-28 06:29] LABS: HEMATOCRIT. 21.6 % (42.0-52.0); HEMOGLOBIN. 7.3 g/dL (14.0-18.0); MEAN CORPUSCULAR VOLUME 89.3 fL (80.0-94.0); MEAN PLATELET VOLUME 7.8 fl (7.4-10.4); PLATELET 72 x1000/uL (130-400); RED BLOOD CELL COUNT 2.42 mill/uL (4.7-6.1); RED CELL DISTRIBUTION WIDTH 15.4 % (11.6-14.6)
[2022-03-28 06:35] LABS: CHLORIDE 103 mEq/L (98-107)
[2022-03-28] MEDS: MEROPENEM 1,000 MG in SODIUM CHLORIDE 0.9% 100 ML IV SCH ×3 (07:49→22:32)
[2022-03-28] MEDS: PANTOPRAZOLE SODIUM 40 MG/VIAL IV SCH (08:56)
[2022-03-28] MEDS: AMIODARONE HCL 200 MG TABLET PO SCH ×2 (08:57→21:18)
[2022-03-28] MEDS: DESMOPRESSIN ACETATE 0.1MG TABLET PO SCH ×2 (08:57→22:17)
[2022-03-28] MEDS: QUETIAPINE FUMARATE 50MG TABLET PO SCH ×2 (08:57→21:18)
[2022-03-28] MEDS: METOPROLOL TARTRATE 100MG TABLET PO SCH ×2 (08:58→21:19)
[2022-03-28] MEDS: LOSARTAN POTASSIUM 100 MG TABLET PO SCH (08:58)
[2022-03-28] MEDS: BICALUTAMIDE 50 MG TABLET PO SCH (08:58)
[2022-03-28] MEDS: NIFEDIPINE XL 90MG TAB PO SCH (08:58)
[2022-03-28 09:47] LABS: NUCLEATED RED BLOOD CELLS 3 /100 WBC; PLATELET ESTIMATE DECREASED
[2022-03-28] MEDS: LEVETIRACETAM 1,500 MG in SODIUM CHLORIDE 0.9% 100 ML IV SCH ×2 (09:47→21:51)
[2022-03-28] MEDS: FILGRASTIM-TBO 480 MCG/0.8 ML SYRINGE SQ SCH (22:15)
[2022-03-29] VITALS (12 sets, daily range): BP systolic 113–175; BP diastolic 63–91
[2022-03-29] MEDS: IPRATROPIUM/ALBUTEROL 0.5-3(2.5)MG/3ML NEB HHN SCH ×6 (00:14→21:25)
[2022-03-29] MEDS: METOCLOPRAMIDE HCL 10MG/2ML VIAL IV SCH ×3 (06:00→17:04)
[2022-03-29] MEDS: PHENYTOIN SODIUM 100MG/2ML VIAL IV SCH ×2 (06:00→13:23)
[2022-03-29] MEDS: HYDRALAZINE HCL 25MG TABLET PO SCH ×3 (06:00→20:19)
[2022-03-29 06:54] LABS: MEAN CORPUSCULAR HEMOGLOBIN 29.6 pg (28.0-32.0); MEAN CORPUSCULAR VOLUME 89.1 fL (80.0-94.0); MEAN PLATELET VOLUME 7.8 fl (7.4-10.4); PLATELET 66 x1000/uL (130-400); RED BLOOD CELL COUNT 2.38 mill/uL (4.7-6.1); RED CELL DISTRIBUTION WIDTH 15.5 % (11.6-14.6)
[2022-03-29 07:16] LABS: CHLORIDE 104 mEq/L (98-107)
[2022-03-29 07:51] LABS: HEMATOCRIT. 21.2 % (42.0-52.0)
[2022-03-29] MEDS: MEROPENEM 1,000 MG in SODIUM CHLORIDE 0.9% 100 ML IV SCH ×2 (08:47→17:05)
[2022-03-29] MEDS: DESMOPRESSIN ACETATE 0.1MG TABLET PO SCH ×2 (09:00→20:19)
[2022-03-29] MEDS: QUETIAPINE FUMARATE 50MG TABLET PO SCH ×2 (09:00→20:20)
[2022-03-29] MEDS: AMIODARONE HCL 200 MG TABLET PO SCH ×2 (09:00→20:20)
[2022-03-29] MEDS: NIFEDIPINE XL 90MG TAB PO SCH (09:00)
[2022-03-29] MEDS: METOPROLOL TARTRATE 100MG TABLET PO SCH ×2 (09:00→20:20)
[2022-03-29] MEDS: LEVETIRACETAM 1,500 MG in SODIUM CHLORIDE 0.9% 100 ML IV SCH (09:04)
[2022-03-29] MEDS: PANTOPRAZOLE SODIUM 40 MG/VIAL IV SCH (09:04)
[2022-03-29] MEDS: LOSARTAN POTASSIUM 100 MG TABLET PO SCH (09:04)
[2022-03-29] MEDS: BICALUTAMIDE 50 MG TABLET PO SCH (09:04)
[2022-03-29 12:56] LABS: PLATELET ESTIMATE DECREASED
[2022-03-29] MEDS: MORPHINE SULFATE 2 MG/ML CPJ (NOT FOR IM USE) IV PRN (13:20)
[2022-03-29] MEDS: LEVETIRACETAM 500MG/5ML CUP PO SCH (20:19)
[2022-03-29] MEDS: FILGRASTIM-TBO 480 MCG/0.8 ML SYRINGE SQ SCH (20:22)
[2022-03-29 20:31] LABS: HEMATOCRIT 24.7 % (42.0-52.0); HEMOGLOBIN 8.3 g/dL (14.0-18.0)
[2022-03-30] VITALS (11 sets, daily range): BP systolic 117–165; BP diastolic 73–89
[2022-03-30] MEDS: IPRATROPIUM/ALBUTEROL 0.5-3(2.5)MG/3ML NEB HHN SCH ×6 (00:23→19:59)
[2022-03-30] MEDS: HYDRALAZINE HCL 25MG TABLET PO SCH ×3 (05:27→20:47)
[2022-03-30 07:06] LABS: HEMATOCRIT. 22.9 % (42.0-52.0); HEMOGLOBIN. 7.7 g/dL (14.0-18.0); MEAN CORPUSCULAR HEMOGLOBIN 30.1 pg (28.0-32.0); MEAN CORPUSCULAR VOLUME 89.4 fL (80.0-94.0); MEAN PLATELET VOLUME 7.7 fl (7.4-10.4); PLATELET 61 x1000/uL (130-400); RED BLOOD CELL COUNT 2.56 mill/uL (4.7-6.1); RED CELL DISTRIBUTION WIDTH 15.6 % (11.6-14.6)
[2022-03-30 07:14] LABS: CHLORIDE 106 mEq/L (98-107)
[2022-03-30] MEDS: BICALUTAMIDE 50 MG TABLET PO SCH (08:48)
[2022-03-30] MEDS: PANTOPRAZOLE SODIUM 40 MG/VIAL IV SCH (08:49)
[2022-03-30] MEDS: DESMOPRESSIN ACETATE 0.1MG TABLET PO SCH ×2 (08:49→20:46)
[2022-03-30] MEDS: AMIODARONE HCL 200 MG TABLET PO SCH (08:49)
[2022-03-30] MEDS: PHENYTOIN 100 MG/4 ML UDC NG SCH (08:49)
[2022-03-30] MEDS: LOSARTAN POTASSIUM 100 MG TABLET PO SCH (08:50)
[2022-03-30] MEDS: METOPROLOL TARTRATE 100MG TABLET PO SCH ×2 (08:50→20:47)
[2022-03-30] MEDS: NIFEDIPINE XL 90MG TAB PO SCH (08:51)
[2022-03-30] MEDS: QUETIAPINE FUMARATE 50MG TABLET PO SCH ×2 (08:54→20:47)
[2022-03-30] MEDS: LEVETIRACETAM 500MG/5ML CUP PO SCH ×2 (08:57→20:46)
[2022-03-30] MEDS ORDERED: POTASSIUM CHLORIDE 20MEQ TABLET SR PO NR (11:30)
[2022-03-30] MEDS: HYDRALAZINE 20MG/ML VIAL IV PRN (18:54)
[2022-03-30 21:07] LABS: PLATELET ESTIMATE DECREASED
[2022-03-31] VITALS (8 sets, daily range): BP systolic 120–178; BP diastolic 64–99
[2022-03-31] MEDS: HYDRALAZINE 20MG/ML VIAL IV PRN (00:28)
[2022-03-31] MEDS: IPRATROPIUM/ALBUTEROL 0.5-3(2.5)MG/3ML NEB HHN SCH ×6 (00:33→20:16)
[2022-03-31 05:54] LABS: HEMATOCRIT. 30.9 % (42.0-52.0); HEMOGLOBIN. 10.2 g/dL (14.0-18.0); MEAN PLATELET VOLUME 7.6 fl (7.4-10.4); PLATELET 66 x1000/uL (130-400); RED CELL DISTRIBUTION WIDTH 15.6 % (11.6-14.6)
[2022-03-31] MEDS: HYDRALAZINE HCL 25MG TABLET PO SCH (06:15)
[2022-03-31 06:19] LABS: CHLORIDE 103 mEq/L (98-107)
[2022-03-31] MEDS: ACETAMINOPHEN 650MG/20.3ML UDC PO PRN (10:14)
[2022-03-31] MEDS: LEVETIRACETAM 500MG/5ML CUP PO SCH ×2 (10:14→21:54)
[2022-03-31] MEDS: PANTOPRAZOLE SODIUM 40 MG/VIAL IV SCH (10:14)
[2022-03-31] MEDS: PHENYTOIN 100 MG/4 ML UDC NG SCH (10:14)
[2022-03-31] MEDS: LOSARTAN POTASSIUM 100 MG TABLET PO SCH (10:15)
[2022-03-31] MEDS: AMIODARONE HCL 200 MG TABLET PO SCH (10:15)
[2022-03-31] MEDS: QUETIAPINE FUMARATE 50MG TABLET PO SCH ×2 (10:15→21:55)
[2022-03-31] MEDS: NIFEDIPINE XL 90MG TAB PO SCH (10:15)
[2022-03-31] MEDS: DESMOPRESSIN ACETATE 0.1MG TABLET PO SCH ×2 (10:15→21:54)
[2022-03-31] MEDS: METOPROLOL TARTRATE 100MG TABLET PO SCH ×2 (10:16→21:54)
[2022-03-31] MEDS: BICALUTAMIDE 50 MG TABLET PO SCH (10:16)
[2022-03-31] MEDS: HYDRALAZINE HCL 100MG TABLET PO SCH ×2 (17:09→21:55)
[2022-03-31 21:46] LABS: NUCLEATED RED BLOOD CELLS 1 /100 WBC; PLATELET ESTIMATE DECREASED
[2022-04-01] VITALS (8 sets, daily range): BP systolic 108–147; BP diastolic 43–85
[2022-04-01] MEDS: IPRATROPIUM/ALBUTEROL 0.5-3(2.5)MG/3ML NEB HHN SCH ×4 (00:22→14:24)
[2022-04-01] MEDS: HYDRALAZINE HCL 100MG TABLET PO SCH ×2 (06:10→14:00)
[2022-04-01 06:22] LABS: HEMATOCRIT. 25.8 % (42.0-52.0); HEMOGLOBIN. 8.6 g/dL (14.0-18.0); MEAN PLATELET VOLUME 7.6 fl (7.4-10.4); PLATELET 59 x1000/uL (130-400); RED BLOOD CELL COUNT 2.86 mill/uL (4.7-6.1); RED CELL DISTRIBUTION WIDTH 15.4 % (11.6-14.6)
[2022-04-01 06:31] LABS: CHLORIDE 103 mEq/L (98-107)
[2022-04-01] MEDS: PANTOPRAZOLE SODIUM 40 MG/VIAL IV SCH (09:03)
[2022-04-01] MEDS: LEVETIRACETAM 500MG/5ML CUP PO SCH (09:04)
[2022-04-01] MEDS: PHENYTOIN 100 MG/4 ML UDC NG SCH (09:04)
[2022-04-01] MEDS: DESMOPRESSIN ACETATE 0.1MG TABLET PO SCH (09:05)
[2022-04-01] MEDS: AMIODARONE HCL 200 MG TABLET PO SCH (09:05)
[2022-04-01] MEDS: METOPROLOL TARTRATE 100MG TABLET PO SCH (09:05)
[2022-04-01] MEDS: NIFEDIPINE XL 90MG TAB PO SCH (09:06)
[2022-04-01] MEDS: QUETIAPINE FUMARATE 50MG TABLET PO SCH (09:06)
[2022-04-01] MEDS: BICALUTAMIDE 50 MG TABLET PO SCH (09:08)
[2022-04-01] MEDS: LOSARTAN POTASSIUM 100 MG TABLET PO SCH (09:19)
[2022-04-01] MEDS ORDERED: BISACODYL 10MG SUPP PR NR (12:00)
[2022-04-01 16:35] LABS: PLATELET ESTIMATE DECREASED
== END 2022-04-01 15:10 | DRG 4 ==
LOC: ER 06:19 → EDBEDREQ 06:31 → EDBEDREQSVC 07:07 → EDBEDREQTM 07:07 → EDBEDREQ 08:01 → OR 10:36 → MICUSO 10:37 → ENRESERV 11:32 → 5EST 03-28 20:44
PROVIDERS: ADMIT Internal Medicine Nephrology; ATTEND Internal Medicine Nephrology
PROC: 009400Z Drainage of Intracranial Subdural Space with Drainage Device, Open Approach (ICD-10-PCS; principal; 2022-03-08)
PROC: 00H032Z Insertion of Monitoring Device into Brain, Percutaneous Approach (ICD-10-PCS; 2022-03-08)
PROC: 4A103BD Monitoring of Intracranial Pressure, Percutaneous Approach (ICD-10-PCS; 2022-03-08)
PROC: 5A1955Z Respiratory Ventilation, Greater than 96 Consecutive Hours (ICD-10-PCS; 2022-03-08)
PROC: 00C40ZZ Extirpation of Matter from Intracranial Subdural Space, Open Approach (ICD-10-PCS; 2022-03-08)
PROC: 0NR007Z Replacement of Skull with Autologous Tissue Substitute, Open Approach (ICD-10-PCS; 2022-03-08)
PROC: 0BH17EZ Insertion of Endotracheal Airway into Trachea, Via Natural or Artificial Opening (ICD-10-PCS; 2022-03-08)
PROC: 02HV33Z Insertion of Infusion Device into Superior Vena Cava, Percutaneous Approach (ICD-10-PCS; 2022-03-09)
PROC: B548ZZA Ultrasonography of Superior Vena Cava, Guidance (ICD-10-PCS; 2022-03-09)
PROC: 30233N1 Transfusion of Nonautologous Red Blood Cells into Peripheral Vein, Percutaneous Approach (ICD-10-PCS; 2022-03-09)
PROC: 0NR007Z Replacement of Skull with Autologous Tissue Substitute, Open Approach (ICD-10-PCS; 2022-03-11)
PROC: 00H032Z Insertion of Monitoring Device into Brain, Percutaneous Approach (ICD-10-PCS; 2022-03-11)
PROC: 4A103BD Monitoring of Intracranial Pressure, Percutaneous Approach (ICD-10-PCS; 2022-03-11)
PROC: 009400Z Drainage of Intracranial Subdural Space with Drainage Device, Open Approach (ICD-10-PCS; 2022-03-11)
PROC: 4A10X4Z Monitoring of Central Nervous Electrical Activity, External Approach (ICD-10-PCS; 2022-03-12)
PROC: 0B110F4 Bypass Trachea to Cutaneous with Tracheostomy Device, Open Approach (ICD-10-PCS; 2022-03-20)
PROC: 4A10X4Z Monitoring of Central Nervous Electrical Activity, External Approach (ICD-10-PCS; 2022-03-23)
PROC: 0DH63UZ Insertion of Feeding Device into Stomach, Percutaneous Approach (ICD-10-PCS; 2022-03-27)
PROC: 0DB78ZX Excision of Stomach, Pylorus, Via Natural or Artificial Opening Endoscopic, Diagnostic (ICD-10-PCS; 2022-03-27)
PROC: 30233R1 Transfusion of Nonautologous Platelets into Peripheral Vein, Percutaneous Approach (ICD-10-PCS; 2022-03-27)
DX: A41.53 Sepsis due to Serratia (principal); D65 Disseminated intravascular coagulation [defibrination syndrome]; G93.41 Metabolic encephalopathy; D61.818 Other pancytopenia; J15.211 Pneumonia due to Methicillin susceptible Staphylococcus aureus; E46 Unspecified protein-calorie malnutrition; C79.51 Secondary malignant neoplasm of bone; C61 Malignant neoplasm of prostate; S06.5X0A Traumatic subdural hemorrhage without loss of consciousness, initial encounter; S06.6X0A Traumatic subarachnoid hemorrhage without loss of consciousness, initial encounter; D63.8 Anemia in other chronic diseases classified elsewhere; G81.91 Hemiplegia, unspecified affecting right dominant side; J96.00 Acute respiratory failure, unspecified whether with hypoxia or hypercapnia; I10 Essential (primary) hypertension; F17.200 Nicotine dependence, unspecified, uncomplicated; D50.0 Iron deficiency anemia secondary to blood loss (chronic); Z20.822 Contact with and (suspected) exposure to COVID-19; W18.39XA Other fall on same level, initial encounter; R13.10 Dysphagia, unspecified; K29.70 Gastritis, unspecified, without bleeding; G25.3 Myoclonus; A41.01 Sepsis due to Methicillin susceptible Staphylococcus aureus; R56.9 Unspecified convulsions; K56.7 Ileus, unspecified; Z99.11 Dependence on respirator [ventilator] status; Z85.46 Personal history of malignant neoplasm of prostate; Y93.89 Activity, other specified; Y92.89 Other specified places as the place of occurrence of the external cause; Y99.8 Other external cause status; Z68.25 Body mass index [BMI] 25.0-25.9, adult
CPT/HCPCS: 36415; 36573; 36600; 71045; 74018; 80048; 80053; 80061; 80076; 80185; 80202; 80305; 80320; 81003; 82140; 82375; 82607; 82728; 82746; 82805; 82962; 83010; 83540; 83550; 83615; 83735; 83930; 83935; 84100; 84145; 84153; 84439; 84443; 84478; 84484; 85014; 85018; 85025; 85027; 85044; 85049; 85384; 86038; 86705; 86709; 86803; 86850; 86880; 86900; 86920; 86945; 87070; 87077; 87186; 87340; 87389; 87426; 88304; 88305; 88312; 88313; 93005; 93970; 93971; 94002; 94003; 94640; 95816; 97166; 97535; 99291; C1713; C1725; C1758; C9113; J0282; J0330; J0360; J0690; J0692; J1100; J1165; J1170; J1442; J1580; J1940; J1953; J2060; J2185; J2250; J2270; J2704; J2765; J3010; J3370; J3480; J3490; J7042; J7050; J7060; J7120; J7608; P9016; P9034; P9047; G0103; G0480; P9036

== ENCOUNTER 2022-05-16 23:24 | Inpatient (IN) | payer MEDICAID ==
[~2022-05-16] VITALS: Ht 188 cm; Wt 90.3 kg
[2022-05-16] MEDS ORDERED: CEFEPIME 2,000 MG in DEXT 5% WATER 100 ML IV SCH (23:45)
[2022-05-16] MEDS ORDERED: SODIUM CHLORIDE 0.9% 1,000 ML IV ONE (23:45)
[2022-05-16 23:59] LABS: MEAN CORPUSCULAR HEMOGLOBIN 29.9 pg (28.0-32.0); MEAN CORPUSCULAR VOLUME 98.1 fL (80.0-94.0); MEAN PLATELET VOLUME 7.6 fl (7.4-10.4); PLATELET 101 x1000/uL (130-400); RED BLOOD CELL COUNT 1.39 mill/uL (4.7-6.1); RED CELL DISTRIBUTION WIDTH 21.1 % (11.6-14.6)
[2022-05-17] VITALS (11 sets, daily range): BP systolic 106–123; BP diastolic 55–70
[2022-05-17 00:10] LABS: HEMATOCRIT. 13.6 % (42.0-52.0)
[2022-05-17 00:14] LABS: CHLORIDE 101 mEq/L (98-107)
[2022-05-17 00:25] LABS: CREATINE KINASE 391 IU/L (39-308)
[2022-05-17 00:26] LABS: HEMOGLOBIN. 4.1 g/dL (14.0-18.0)
[2022-05-17] MEDS ORDERED: LEVETIRACETAM 500MG PREMIX 100 ML IV ONE ×2 (00:30)
[2022-05-17 00:59] LABS: BG FRACTION INSPIRED OXYGEN 40; BG HCO3 ACT 25.4 mmol/L (22.0-26.0); BG PH 7.479 (7.350-7.450); BG PO2 151.2 mmHg (75.0-100.0); BG SAMPLE SITE RIGHT RADIAL; BG TOTAL HEMOGLOBIN < 4.5 g/dL (12.0-18.0); BG VENT MODE VENT - AC
[2022-05-17] MEDS ORDERED: DEXTROSE 50% WATER 50ML SYRINGE IV ONE (01:00)
[2022-05-17] MEDS ORDERED: IOHEXOL-350 100 ML BOTTLE ONE (01:21)
[2022-05-17 01:23] LABS: CLARITY URINE TURBID (CLEAR); COLOR URINE YELLOW (YELLOW); KETONES URINE NEGATIVE (NEGATIVE); LEUKOCYTE ESTERASE URINE 3+ (NEGATIVE); NITRITE URINE POSITIVE (NEGATIVE); OCCULT BLOOD URINE NEGATIVE (NEGATIVE); PH URINE >=9.0 (4.5-8.0); PROTEIN URINE 1+ (NEGATIVE); SPECIFIC GRAVITY URINE 1.018 (1.005-1.030); UROBILINOGEN URINE 0.2 E.U./dL (0.2-1.0)
[2022-05-17] MEDS ORDERED: VANCOMYCIN 1G PREMIX 200 ML IV ONE (01:30)
[2022-05-17] MEDS ORDERED: VANCOMYCIN 1GM PMX (XELLIA) 200 ML IV NR (01:45)
[2022-05-17] MEDS ORDERED: LEVETIRACETAM 500MG PREMIX 100 ML IV NR (03:00)
[2022-05-17 05:51] LABS: NUCLEATED RED BLOOD CELLS 16 /100 WBC
[2022-05-17 05:52] LABS: PLATELET ESTIMATE SLIGHTLY DECREASED
[2022-05-17] MEDS ORDERED: ACETAMINOPHEN 650MG SUPP PR ONE (06:45)
[2022-05-17] MEDS ORDERED: SODIUM CHLORIDE 0.9% 1,000 ML IV ONE (07:00)
[2022-05-17] MEDS ORDERED: ONDANSETRON HCL 4MG/2ML INJ IV PRN (07:30)
[2022-05-17] MEDS ORDERED: HYDROCODONE/ACETAMINOPHEN 5/325MG TABLET PO PRN (07:30)
[2022-05-17] MEDS ORDERED: MORPHINE SULFATE 2 MG/ML CPJ (NOT FOR IM USE) IV PRN (07:30)
[2022-05-17] MEDS ORDERED: CLONIDINE 0.1MG TABLET PO PRN (07:30)
[2022-05-17] MEDS ORDERED: DOCUSATE SODIUM 100MG CAPSULE PO PRN (07:30)
[2022-05-17] MEDS ORDERED: GUAIFENESIN 200MG/10ML SUGAR FREE UDC PO PRN (07:30)
[2022-05-17] MEDS ORDERED: MAGNESIUM/ALUMINUM HYDROXIDE/SIMETHICONE 30ML UDC PO PRN (07:30)
[2022-05-17 13:34] LABS: INR 1.2; PROTHROMBIN TIME 12.3 sec (9.6-11.0)
[2022-05-17 14:01] LABS: HEMATOCRIT 18.8 % (42.0-52.0); HEMOGLOBIN 6.1 g/dL (14.0-18.0)
[2022-05-17] MEDS: METRONIDAZOLE 500MG TABLET GT SCH ×2 (14:58→21:19)
[2022-05-17] MEDS: CEFEPIME 2,000 MG in DEXT 5% WATER 100 ML IV SCH ×2 (15:03→23:28)
[2022-05-17] MEDS: ACETAMINOPHEN 325MG TABLET PO PRN (16:50)
[2022-05-17 21:00] LABS: HEMATOCRIT 25.9 % (42.0-52.0); HEMOGLOBIN 7.7 g/dL (14.0-18.0)
[2022-05-17] MEDS: LEVETIRACETAM 500MG/5ML CUP PO SCH (21:19)
[2022-05-17] MEDS ORDERED: LORAZEPAM 0.5MG TABLET PO PRN (23:30)
[2022-05-18] VITALS (12 sets, daily range): BP systolic 102–130; BP diastolic 52–92
[2022-05-18] MEDS: ACETAMINOPHEN 325MG TABLET PO PRN ×4 (02:13→21:26)
[2022-05-18] MEDS ORDERED: IBUPROFEN 400MG TABLET PO NR (03:15)
[2022-05-18] MEDS: METRONIDAZOLE 500MG TABLET GT SCH ×3 (05:12→21:26)
[2022-05-18 06:52] LABS: TOTAL IRON BINDING CAPACITY 222 ug/dL (250-450)
[2022-05-18 07:14] LABS: VITAMIN B12 SERUM 1184 pg/mL (211-911)
[2022-05-18] MEDS: CEFEPIME 2,000 MG in DEXT 5% WATER 100 ML IV SCH ×2 (08:05→21:26)
[2022-05-18] MEDS: LEVETIRACETAM 500MG/5ML CUP PO SCH ×2 (08:05→21:25)
[2022-05-18] MEDS ORDERED: DOCUSATE SODIUM SUGAR FREE 100MG/10ML UDC PEG SCH (15:30)
[2022-05-18] MEDS: PANTOPRAZOLE SODIUM 40 MG/VIAL IV SCH (15:38)
[2022-05-18 15:55] LABS: CHLORIDE 114 mEq/L (98-107)
[2022-05-18 15:56] LABS: BASOPHILS % 0.6 % (0.0-2.0); EOSINOPHILS % 0.2 % (0.0-5.0); HEMATOCRIT. 24.5 % (42.0-52.0); LYMPHOCYTES % 12.3 % (20.0-50.0); MEAN CORPUSCULAR HEMOGLOBIN 29.6 pg (28.0-32.0); MEAN CORPUSCULAR VOLUME 91.2 fL (80.0-94.0); MONOCYTES % 6.4 % (2.0-8.0); NEUTROPHILS % 80.5 % (40.0-76.0); PLATELET 91 x1000/uL (130-400); RED BLOOD CELL COUNT 2.69 mill/uL (4.7-6.1); RED CELL DISTRIBUTION WIDTH 17.4 % (11.6-14.6)
[2022-05-18] MEDS ORDERED: IPRATROPIUM/ALBUTEROL 0.5-3(2.5)MG/3ML NEB HHN SCH (16:00)
[2022-05-18] MEDS: IPRATROPIUM BROMIDE (0.02%) 0.5MG/2.5ML NEB HHN SCH (16:00)
[2022-05-18] MEDS: ACETYLCYSTEINE 100MG/ML 10% VIAL 4ML INH SCH (16:22)
[2022-05-18] MEDS: DOCUSATE SODIUM SUGAR FREE 100MG/10ML UDC PEG SCH (17:11)
[2022-05-18] MEDS ORDERED: SODIUM CHLORIDE 0.9% 1000ML BAG (SEPSIS BOLUS) IV NR (20:30)
[2022-05-18] MEDS ORDERED: METOPROLOL TARTRATE 25MG TABLET PO SCH ×2 (20:30→21:00)
[2022-05-18 20:42] LABS: BASOPHILS % 0.2 % (0.0-2.0); EOSINOPHILS % 0.2 % (0.0-5.0); HEMATOCRIT. 24.4 % (42.0-52.0); HEMOGLOBIN. 8.1 g/dL (14.0-18.0); LYMPHOCYTES % 8.9 % (20.0-50.0); MEAN CORPUSCULAR VOLUME 90.6 fL (80.0-94.0); MEAN PLATELET VOLUME 8.3 fl (7.4-10.4); MONOCYTES % 5.4 % (2.0-8.0); NEUTROPHILS % 85.3 % (40.0-76.0); PLATELET 89 x1000/uL (130-400); RED CELL DISTRIBUTION WIDTH 17.2 % (11.6-14.6)
[2022-05-18 20:51] LABS: CHLORIDE 113 mEq/L (98-107)
[2022-05-18] MEDS: AMIODARONE HCL 200 MG TABLET PO SCH (21:26)
[2022-05-18 23:36] LABS: HEMATOCRIT 23.2 % (42.0-52.0); HEMOGLOBIN 7.5 g/dL (14.0-18.0)
[2022-05-19] VITALS (12 sets, daily range): BP systolic 99–121; BP diastolic 57–72
[2022-05-19] MEDS: IPRATROPIUM BROMIDE (0.02%) 0.5MG/2.5ML NEB HHN SCH ×6 (00:15→19:45)
[2022-05-19] MEDS: ACETYLCYSTEINE 100MG/ML 10% VIAL 4ML INH SCH ×3 (00:15→16:18)
[2022-05-19 04:51] LABS: HEMATOCRIT 24.5 % (42.0-52.0); HEMOGLOBIN 7.9 g/dL (14.0-18.0)
[2022-05-19] MEDS ORDERED: METOPROLOL TARTRATE 5MG/5ML VIAL IV PRN ×2 (05:30→08:45)
[2022-05-19] MEDS ORDERED: AMIODARONE HCL 900 MG in DEXT 5% WATER 482 ML IV PRN (05:30)
[2022-05-19] MEDS: METRONIDAZOLE 500MG TABLET GT SCH ×3 (05:51→21:07)
[2022-05-19] MEDS: ACETAMINOPHEN 325MG TABLET PO PRN ×2 (05:52→12:59)
[2022-05-19] MEDS: SODIUM CHLORIDE 0.9% 1000ML BAG (SEPSIS BOLUS) IV NR (05:52)
[2022-05-19] MEDS ORDERED: DIGOXIN 500MCG/2ML AMP IV PRN (08:45)
[2022-05-19] MEDS ORDERED: DIGOXIN 500MCG/2ML AMP IV NR (09:00)
[2022-05-19 09:06] LABS: FOLATE HEMATOCRIT 24.9 % (37.5-51.0)
[2022-05-19] MEDS: CEFEPIME 2,000 MG in DEXT 5% WATER 100 ML IV SCH ×2 (09:06→21:06)
[2022-05-19] MEDS: LEVETIRACETAM 500MG/5ML CUP PO SCH ×2 (09:06→21:06)
[2022-05-19] MEDS: PANTOPRAZOLE SODIUM 40 MG/VIAL IV SCH (09:06)
[2022-05-19] MEDS: METOPROLOL TARTRATE 50MG TABLET PO SCH ×2 (09:07→21:08)
[2022-05-19] MEDS: DOCUSATE SODIUM SUGAR FREE 100MG/10ML UDC PEG SCH ×2 (09:25→17:49)
[2022-05-19] MEDS: AMIODARONE HCL 200 MG TABLET PO SCH ×2 (09:25→21:07)
[2022-05-19 14:09] LABS: FOLATE RBC 1217 ng/mL (>498)
[2022-05-19] MEDS ORDERED: LACTULOSE 20G/30ML UDC PO NR (15:15)
[2022-05-19] MEDS: METOCLOPRAMIDE HCL 10MG/2ML VIAL IV SCH (17:49)
[2022-05-19] MEDS ORDERED: VANCOMYCIN 1,750 MG in DEXT 5% WATER 500 ML IV NR (21:00)
[2022-05-19] MEDS ORDERED: BISACODYL 10MG SUPP PR NR (21:00)
[2022-05-20] VITALS (12 sets, daily range): BP systolic 93–120; BP diastolic 53–89
[2022-05-20] MEDS: IPRATROPIUM BROMIDE (0.02%) 0.5MG/2.5ML NEB HHN SCH ×5 (00:04→16:15)
[2022-05-20] MEDS: ACETYLCYSTEINE 100MG/ML 10% VIAL 4ML INH SCH ×3 (00:04→16:15)
[2022-05-20] MEDS: METOCLOPRAMIDE HCL 10MG/2ML VIAL IV SCH ×5 (00:16→23:18)
[2022-05-20] MEDS: METRONIDAZOLE 500MG TABLET GT SCH ×3 (05:37→21:36)
[2022-05-20] MEDS: SODIUM CHLORIDE 0.9% 1000ML BAG (SEPSIS BOLUS) IV NR (05:37)
[2022-05-20] MEDS ORDERED: VANCOMYCIN 1GM PMX (XELLIA) 200 ML IV SCH (06:00)
[2022-05-20 06:34] LABS: HEMATOCRIT. 25.2 % (42.0-52.0); MEAN CORPUSCULAR HEMOGLOBIN 30.2 pg (28.0-32.0); MEAN PLATELET VOLUME 7.9 fl (7.4-10.4); PLATELET 83 x1000/uL (130-400); RED BLOOD CELL COUNT 2.65 mill/uL (4.7-6.1); RED CELL DISTRIBUTION WIDTH 18.3 % (11.6-14.6)
[2022-05-20 07:14] LABS: CHLORIDE 114 mEq/L (98-107)
[2022-05-20] MEDS: DOCUSATE SODIUM SUGAR FREE 100MG/10ML UDC PEG SCH ×2 (09:54→17:34)
[2022-05-20] MEDS: LEVETIRACETAM 500MG/5ML CUP PO SCH ×2 (09:54→21:36)
[2022-05-20] MEDS: CEFEPIME 2,000 MG in DEXT 5% WATER 100 ML IV SCH ×2 (09:54→21:35)
[2022-05-20] MEDS: PANTOPRAZOLE SODIUM 40 MG/VIAL IV SCH (09:55)
[2022-05-20] MEDS: AMIODARONE HCL 200 MG TABLET PO SCH ×3 (09:55→23:18)
[2022-05-20] MEDS: METOPROLOL TARTRATE 50MG TABLET PO SCH ×2 (09:57→21:00)
[2022-05-20 13:43] LABS: NUCLEATED RED BLOOD CELLS 6 /100 WBC
[2022-05-20 13:44] LABS: PLATELET ESTIMATE DECREASED
[2022-05-20] MEDS: VANCOMYCIN 750MG PREMIX 150 ML IV SCH ×2 (14:08→21:35)
[2022-05-20] MEDS: SODIUM CHLORIDE 0.45% 1,000 ML IV SCH (14:17)
[2022-05-20 17:04] LABS: BG BASE EXCESS -2.3 mmol/L (-2.0-2.0); BG CARBOXYHEMOGLOBIN 0.3 % (0.5-1.5); BG DEOXYHEMOGLOBIN 2.3 % (0.0-5.0); BG FRACTION INSPIRED OXYGEN 40; BG HCO3 ACT 21.8 mmol/L (22.0-26.0); BG METHEMOGLOBIN 0.7 % (0.0-1.5); BG OXYGEN SATURATION 97.7 % (92.0-98.5); BG OXYHEMOGLOBIN 96.7 % (94.0-97.0); BG PCO2 34.4 mmHg (35.0-45.0); BG PO2 111.2 mmHg (75.0-100.0); BG SAMPLE SITE RIGHT RADIAL; BG TOTAL HEMOGLOBIN 7.7 g/dL (12.0-18.0); BG VENT MODE VENT - AC
[2022-05-20] MEDS: IPRATROPIUM/ALBUTEROL 0.5-3(2.5)MG/3ML NEB NEB PRN (21:00)
[2022-05-21] VITALS (20 sets, daily range): BP systolic 98–132; BP diastolic 54–69
[2022-05-21] MEDS: IPRATROPIUM BROMIDE (0.02%) 0.5MG/2.5ML NEB HHN SCH ×6 (00:47→20:48)
[2022-05-21] MEDS: ACETYLCYSTEINE 100MG/ML 10% VIAL 4ML INH SCH ×3 (00:47→16:31)
[2022-05-21] MEDS: AMIODARONE HCL 200 MG TABLET PO SCH ×3 (06:00→20:49)
[2022-05-21] MEDS: VANCOMYCIN 750MG PREMIX 150 ML IV SCH ×2 (06:04→23:18)
[2022-05-21] MEDS: SODIUM CHLORIDE 0.45% 1,000 ML IV SCH ×3 (06:04→23:18)
[2022-05-21] MEDS: METRONIDAZOLE 500MG TABLET GT SCH ×2 (06:04→14:04)
[2022-05-21] MEDS: METOCLOPRAMIDE HCL 10MG/2ML VIAL IV SCH ×4 (06:05→23:18)
[2022-05-21 07:12] LABS: CHLORIDE 113 mEq/L (98-107)
[2022-05-21 07:24] LABS: VANCOMYCIN TROUGH 34.9 ug/mL (5.0-10.0)
[2022-05-21] MEDS: LEVETIRACETAM 500MG/5ML CUP PO SCH ×2 (08:30→20:49)
[2022-05-21] MEDS: DOCUSATE SODIUM SUGAR FREE 100MG/10ML UDC PEG SCH ×2 (08:30→17:49)
[2022-05-21] MEDS: PANTOPRAZOLE SODIUM 40 MG/VIAL IV SCH (08:31)
[2022-05-21] MEDS: METOPROLOL TARTRATE 50MG TABLET PO SCH ×2 (08:31→20:50)
[2022-05-21] MEDS: CEFEPIME 2,000 MG in DEXT 5% WATER 100 ML IV SCH (08:32)
[2022-05-21 08:47] LABS: BASOPHILS % 0.5 % (0.0-2.0); EOSINOPHILS % 1.7 % (0.0-5.0); LYMPHOCYTES % 14.5 % (20.0-50.0); MEAN CORPUSCULAR HEMOGLOBIN 29.9 pg (28.0-32.0); MEAN CORPUSCULAR VOLUME 93.9 fL (80.0-94.0); MEAN PLATELET VOLUME 8.5 fl (7.4-10.4); MONOCYTES % 4.2 % (2.0-8.0); NEUTROPHILS % 79.1 % (40.0-76.0); PLATELET 69 x1000/uL (130-400)
[2022-05-21 09:11] LABS: HEMATOCRIT. 20.6 % (42.0-52.0); HEMOGLOBIN. 6.6 g/dL (14.0-18.0)
[2022-05-21 13:11] LABS: ATYPICAL pANCA <1:20 titer (Neg:<1:20); SACCHAROMYCES CEREVISIAE IGG <20.0 Units (0.0-24.9); SACCHAROMYCES CEREVISIAE IGM <20.0 Units (0.0-24.9)
[2022-05-21] MEDS: ACETAMINOPHEN 325MG TABLET PO PRN (14:09)
[2022-05-21] MEDS: MEROPENEM 1,000 MG in SODIUM CHLORIDE 0.9% 100 ML IV SCH (18:48)
[2022-05-21 20:56] LABS: HEMATOCRIT 22.4 % (42.0-52.0); HEMOGLOBIN 7.2 g/dL (14.0-18.0)
[2022-05-22] VITALS (12 sets, daily range): BP systolic 114–135; BP diastolic 57–67
[2022-05-22] MEDS: ACETAMINOPHEN 325MG TABLET PO PRN ×2 (00:12→12:43)
[2022-05-22] MEDS: IPRATROPIUM BROMIDE (0.02%) 0.5MG/2.5ML NEB HHN SCH ×6 (00:42→19:55)
[2022-05-22] MEDS: ACETYLCYSTEINE 100MG/ML 10% VIAL 4ML INH SCH ×3 (00:42→16:18)
[2022-05-22] MEDS: AMIODARONE HCL 200 MG TABLET PO SCH ×3 (05:25→21:40)
[2022-05-22] MEDS: MEROPENEM 1,000 MG in SODIUM CHLORIDE 0.9% 100 ML IV SCH ×3 (05:26→21:40)
[2022-05-22] MEDS: METOCLOPRAMIDE HCL 10MG/2ML VIAL IV SCH ×3 (05:26→18:05)
[2022-05-22 07:18] LABS: HEMATOCRIT. 24.6 % (42.0-52.0); HEMOGLOBIN. 8.2 g/dL (14.0-18.0); MEAN CORPUSCULAR HEMOGLOBIN 29.8 pg (28.0-32.0); MEAN CORPUSCULAR VOLUME 89.7 fL (80.0-94.0); MEAN PLATELET VOLUME 8.2 fl (7.4-10.4); PLATELET 55 x1000/uL (130-400); RED BLOOD CELL COUNT 2.74 mill/uL (4.7-6.1)
[2022-05-22 07:54] LABS: CHLORIDE 117 mEq/L (98-107)
[2022-05-22] MEDS: DOCUSATE SODIUM SUGAR FREE 100MG/10ML UDC PEG SCH ×2 (08:31→18:05)
[2022-05-22] MEDS: LEVETIRACETAM 500MG/5ML CUP PO SCH ×2 (08:31→21:38)
[2022-05-22] MEDS: PANTOPRAZOLE SODIUM 40 MG/VIAL IV SCH (08:31)
[2022-05-22] MEDS: METOPROLOL TARTRATE 50MG TABLET PO SCH ×2 (08:32→21:40)
[2022-05-22] MEDS: SODIUM CHLORIDE 0.45% 1,000 ML IV SCH ×2 (12:18→21:41)
[2022-05-22] MEDS: VANCOMYCIN 750MG PREMIX 150 ML IV SCH (18:05)
[2022-05-23] VITALS (12 sets, daily range): BP systolic 109–135; BP diastolic 54–73
[2022-05-23] MEDS: IPRATROPIUM BROMIDE (0.02%) 0.5MG/2.5ML NEB HHN SCH ×5 (00:36→20:18)
[2022-05-23] MEDS: ACETYLCYSTEINE 100MG/ML 10% VIAL 4ML INH SCH ×3 (00:36→14:00)
[2022-05-23 04:11] LABS: PLATELET ESTIMATE MARKEDLY DECREASED
[2022-05-23] MEDS: MEROPENEM 1,000 MG in SODIUM CHLORIDE 0.9% 100 ML IV SCH ×2 (05:51→14:43)
[2022-05-23] MEDS: AMIODARONE HCL 200 MG TABLET PO SCH ×3 (05:52→21:16)
[2022-05-23] MEDS: METOCLOPRAMIDE HCL 10MG/2ML VIAL IV SCH ×5 (05:52→23:42)
[2022-05-23] MEDS: PANTOPRAZOLE SODIUM 40 MG/VIAL IV SCH (08:45)
[2022-05-23] MEDS: LEVETIRACETAM 500MG/5ML CUP PO SCH ×2 (08:46→21:16)
[2022-05-23] MEDS: METOPROLOL TARTRATE 50MG TABLET PO SCH ×2 (08:46→21:18)
[2022-05-23] MEDS: DOCUSATE SODIUM SUGAR FREE 100MG/10ML UDC PEG SCH ×2 (08:46→17:00)
[2022-05-23] MEDS: IPRATROPIUM/ALBUTEROL 0.5-3(2.5)MG/3ML NEB NEB PRN (08:52)
[2022-05-23] MEDS: SODIUM CHLORIDE 0.45% 1,000 ML IV SCH ×2 (08:56→17:51)
[2022-05-23] MEDS: VANCOMYCIN 750MG PREMIX 150 ML IV SCH (12:09)
[2022-05-23] MEDS: AMPICILLIN SOD/SULBACTAM NA 3 G in SODIUM CHLORIDE 0.9% 100 ML IV SCH ×2 (19:35→23:42)
[2022-05-24] VITALS (11 sets, daily range): BP systolic 108–136; BP diastolic 62–85
[2022-05-24] MEDS: IPRATROPIUM BROMIDE (0.02%) 0.5MG/2.5ML NEB HHN SCH ×6 (00:18→20:49)
[2022-05-24] MEDS: SODIUM CHLORIDE 0.45% 1,000 ML IV SCH ×2 (03:00→13:32)
[2022-05-24 06:18] LABS: HEMATOCRIT. 25.9 % (42.0-52.0); HEMOGLOBIN. 8.4 g/dL (14.0-18.0); MEAN CORPUSCULAR HEMOGLOBIN 29.5 pg (28.0-32.0); MEAN CORPUSCULAR VOLUME 90.7 fL (80.0-94.0); MEAN PLATELET VOLUME 8.8 fl (7.4-10.4); PLATELET 55 x1000/uL (130-400); RED BLOOD CELL COUNT 2.85 mill/uL (4.7-6.1); RED CELL DISTRIBUTION WIDTH 17.3 % (11.6-14.6)
[2022-05-24] MEDS: AMPICILLIN SOD/SULBACTAM NA 3 G in SODIUM CHLORIDE 0.9% 100 ML IV SCH ×3 (06:21→17:13)
[2022-05-24] MEDS: METOCLOPRAMIDE HCL 10MG/2ML VIAL IV SCH ×3 (06:22→17:13)
[2022-05-24] MEDS: AMIODARONE HCL 200 MG TABLET PO SCH ×3 (06:22→21:42)
[2022-05-24 06:43] LABS: CHLORIDE 120 mEq/L (98-107)
[2022-05-24 06:52] LABS: PHOSPHORUS 3.9 mg/dL (2.5-4.9)
[2022-05-24] MEDS: PANTOPRAZOLE SODIUM 40 MG/VIAL IV SCH (09:08)
[2022-05-24] MEDS: LEVETIRACETAM 500MG/5ML CUP PO SCH ×2 (09:08→21:42)
[2022-05-24] MEDS: DOCUSATE SODIUM SUGAR FREE 100MG/10ML UDC PEG SCH ×2 (09:09→17:13)
[2022-05-24] MEDS: METOPROLOL TARTRATE 50MG TABLET PO SCH ×2 (09:09→21:43)
[2022-05-24 10:16] LABS: NUCLEATED RED BLOOD CELLS 3 /100 WBC; PLATELET ESTIMATE MARKEDLY DECREASED
[2022-05-25] VITALS (12 sets, daily range): BP systolic 114–137; BP diastolic 61–84
[2022-05-25] MEDS: METOCLOPRAMIDE HCL 10MG/2ML VIAL IV SCH ×4 (00:06→17:38)
[2022-05-25] MEDS: AMPICILLIN SOD/SULBACTAM NA 3 G in SODIUM CHLORIDE 0.9% 100 ML IV SCH ×4 (00:06→17:38)
[2022-05-25] MEDS: IPRATROPIUM BROMIDE (0.02%) 0.5MG/2.5ML NEB HHN SCH ×6 (00:40→20:56)
[2022-05-25] MEDS: SODIUM CHLORIDE 0.45% 1,000 ML IV SCH ×2 (01:00→09:26)
[2022-05-25] MEDS: AMIODARONE HCL 200 MG TABLET PO SCH ×3 (06:32→21:51)
[2022-05-25] MEDS: PANTOPRAZOLE SODIUM 40 MG/VIAL IV SCH (08:14)
[2022-05-25] MEDS: LEVETIRACETAM 500MG/5ML CUP PO SCH ×2 (08:15→21:48)
[2022-05-25] MEDS: DOCUSATE SODIUM SUGAR FREE 100MG/10ML UDC PEG SCH ×2 (08:15→17:38)
[2022-05-25] MEDS: METOPROLOL TARTRATE 50MG TABLET PO SCH ×2 (08:15→21:51)
[2022-05-25 11:57] LABS: HEMATOCRIT. 25.4 % (42.0-52.0); HEMOGLOBIN. 8.2 g/dL (14.0-18.0); MEAN CORPUSCULAR HEMOGLOBIN 29.7 pg (28.0-32.0); MEAN CORPUSCULAR VOLUME 91.9 fL (80.0-94.0); MEAN PLATELET VOLUME 8.6 fl (7.4-10.4); RED BLOOD CELL COUNT 2.76 mill/uL (4.7-6.1)
[2022-05-25 12:05] LABS: CHLORIDE 121 mEq/L (98-107)
[2022-05-25 12:08] LABS: PLATELET 50 x1000/uL (130-400)
[2022-05-25 13:10] LABS: NUCLEATED RED BLOOD CELLS 5 /100 WBC; PLATELET ESTIMATE MARKEDLY DECREASED
[2022-05-25] MEDS: ACETAMINOPHEN 325MG TABLET PO PRN (21:48)
[2022-05-26] VITALS (12 sets, daily range): BP systolic 111–144; BP diastolic 58–71
[2022-05-26] MEDS: IPRATROPIUM BROMIDE (0.02%) 0.5MG/2.5ML NEB HHN SCH ×6 (00:47→21:21)
[2022-05-26] MEDS: SODIUM CHLORIDE 0.45% 1,000 ML IV SCH ×2 (01:00→12:43)
[2022-05-26] MEDS: METOCLOPRAMIDE HCL 10MG/2ML VIAL IV SCH ×4 (01:20→17:12)
[2022-05-26] MEDS: AMPICILLIN SOD/SULBACTAM NA 3 G in SODIUM CHLORIDE 0.9% 100 ML IV SCH ×4 (01:20→17:12)
[2022-05-26] MEDS: AMIODARONE HCL 200 MG TABLET PO SCH (05:51)
[2022-05-26 07:11] LABS: CHLORIDE 118 mEq/L (98-107)
[2022-05-26 07:25] LABS: PHOSPHORUS 3.6 mg/dL (2.5-4.9)
[2022-05-26 08:05] LABS: HEMATOCRIT. 24.2 % (42.0-52.0); HEMOGLOBIN. 7.8 g/dL (14.0-18.0); MEAN CORPUSCULAR HEMOGLOBIN 29.5 pg (28.0-32.0); MEAN CORPUSCULAR VOLUME 91.5 fL (80.0-94.0); MEAN PLATELET VOLUME 8.3 fl (7.4-10.4); RED BLOOD CELL COUNT 2.65 mill/uL (4.7-6.1); RED CELL DISTRIBUTION WIDTH 16.7 % (11.6-14.6)
[2022-05-26 08:14] LABS: PLATELET 49 x1000/uL (130-400)
[2022-05-26] MEDS: DOCUSATE SODIUM SUGAR FREE 100MG/10ML UDC PEG SCH ×2 (08:54→17:11)
[2022-05-26] MEDS: LEVETIRACETAM 500MG/5ML CUP PO SCH ×2 (08:54→20:37)
[2022-05-26] MEDS: METOPROLOL TARTRATE 50MG TABLET PO SCH ×2 (08:55→20:38)
[2022-05-26] MEDS: PANTOPRAZOLE SODIUM 40 MG/VIAL IV SCH (08:56)
[2022-05-26 12:05] LABS: NUCLEATED RED BLOOD CELLS 5 /100 WBC
[2022-05-26 12:06] LABS: PLATELET ESTIMATE MARKEDLY DECREASED
[2022-05-27] VITALS (12 sets, daily range): BP systolic 113–148; BP diastolic 59–76
[2022-05-27] MEDS: METOCLOPRAMIDE HCL 10MG/2ML VIAL IV SCH ×4 (00:03→17:06)
[2022-05-27] MEDS: AMPICILLIN SOD/SULBACTAM NA 3 G in SODIUM CHLORIDE 0.9% 100 ML IV SCH ×4 (00:04→17:06)
[2022-05-27] MEDS: SODIUM CHLORIDE 0.45% 1,000 ML IV SCH ×3 (00:04→22:38)
[2022-05-27] MEDS: IPRATROPIUM BROMIDE (0.02%) 0.5MG/2.5ML NEB HHN SCH ×6 (00:19→20:37)
[2022-05-27 06:18] LABS: HEMATOCRIT. 23.2 % (42.0-52.0); HEMOGLOBIN. 7.5 g/dL (14.0-18.0); MEAN CORPUSCULAR HEMOGLOBIN 29.7 pg (28.0-32.0); MEAN CORPUSCULAR VOLUME 91.8 fL (80.0-94.0); MEAN PLATELET VOLUME 8.6 fl (7.4-10.4); PLATELET 52 x1000/uL (130-400); RED BLOOD CELL COUNT 2.52 mill/uL (4.7-6.1); RED CELL DISTRIBUTION WIDTH 17.3 % (11.6-14.6)
[2022-05-27 06:49] LABS: CHLORIDE 120 mEq/L (98-107)
[2022-05-27] MEDS: DOCUSATE SODIUM SUGAR FREE 100MG/10ML UDC PEG SCH ×2 (08:23→17:06)
[2022-05-27] MEDS: AMIODARONE HCL 200 MG TABLET PO SCH (08:23)
[2022-05-27] MEDS: LEVETIRACETAM 500MG/5ML CUP PO SCH ×2 (08:23→20:12)
[2022-05-27] MEDS: PANTOPRAZOLE SODIUM 40 MG/VIAL IV SCH (08:23)
[2022-05-27] MEDS: METOPROLOL TARTRATE 50MG TABLET PO SCH ×2 (08:24→20:12)
[2022-05-27 15:04] LABS: TOTAL IRON BINDING CAPACITY 86 ug/dL (250-450)
[2022-05-27] MEDS ORDERED: METO-539 PO (15:21)
[2022-05-27] MEDS ORDERED: AMI2 PO (15:21)
[2022-05-27] MEDS ORDERED: OMEP20TA23 GT (15:21)
[2022-05-27] MEDS ORDERED: KEPPSOL PO (15:21)
[2022-05-27] MEDS ORDERED: METO-293 MT (15:21)
[2022-05-27 15:33] LABS: FOLIC ACID (FOLATE) SERUM 2.7 ng/mL (>5.38)
[2022-05-27 18:24] LABS: NUCLEATED RED BLOOD CELLS 1 /100 WBC; PLATELET ESTIMATE MARKEDLY DECREASED
[2022-05-28] VITALS (16 sets, daily range): BP systolic 112–159; BP diastolic 52–75
[2022-05-28] MEDS: IPRATROPIUM BROMIDE (0.02%) 0.5MG/2.5ML NEB HHN SCH ×5 (00:43→20:05)
[2022-05-28] MEDS: AMPICILLIN SOD/SULBACTAM NA 3 G in SODIUM CHLORIDE 0.9% 100 ML IV SCH ×4 (00:47→23:15)
[2022-05-28] MEDS: METOCLOPRAMIDE HCL 10MG/2ML VIAL IV SCH ×4 (00:47→23:15)
[2022-05-28] MEDS: METOPROLOL TARTRATE 50MG TABLET PO SCH ×2 (09:00→20:26)
[2022-05-28] MEDS: AMIODARONE HCL 200 MG TABLET PO SCH (09:00)
[2022-05-28] MEDS: PANTOPRAZOLE SODIUM 40 MG/VIAL IV SCH (09:00)
[2022-05-28] MEDS: LEVETIRACETAM 500MG/5ML CUP PO SCH ×2 (09:00→20:26)
[2022-05-28 12:24] LABS: CHLORIDE 116 mEq/L (98-107)
[2022-05-28 12:31] LABS: BASOPHILS % 0.6 % (0.0-2.0); EOSINOPHILS % 0.3 % (0.0-5.0); HEMATOCRIT. 22.1 % (42.0-52.0); HEMOGLOBIN. 7.2 g/dL (14.0-18.0); LYMPHOCYTES % 9.3 % (20.0-50.0); MEAN CORPUSCULAR HEMOGLOBIN 29.7 pg (28.0-32.0); MEAN CORPUSCULAR VOLUME 90.8 fL (80.0-94.0); MEAN PLATELET VOLUME 9.1 fl (7.4-10.4); MONOCYTES % 3.7 % (2.0-8.0); NEUTROPHILS % 86.1 % (40.0-76.0); PLATELET 52 x1000/uL (130-400); RED BLOOD CELL COUNT 2.43 mill/uL (4.7-6.1); RED CELL DISTRIBUTION WIDTH 16.4 % (11.6-14.6)
[2022-05-28] MEDS: FOLIC ACID 1MG TABLET PO SCH (15:20)
[2022-05-28] MEDS: DOCUSATE SODIUM SUGAR FREE 100MG/10ML UDC PEG SCH (17:00)
[2022-05-28] MEDS: ACETAMINOPHEN 325MG TABLET PO PRN (17:08)
[2022-05-28] MEDS: SODIUM CHLORIDE 0.45% 1,000 ML IV SCH (17:11)
[2022-05-29] VITALS (12 sets, daily range): BP systolic 118–149; BP diastolic 66–86
[2022-05-29] MEDS: IPRATROPIUM BROMIDE (0.02%) 0.5MG/2.5ML NEB HHN SCH ×6 (00:02→20:23)
[2022-05-29] MEDS: SODIUM CHLORIDE 0.45% 1,000 ML IV SCH ×3 (04:14→23:24)
[2022-05-29] MEDS: METOCLOPRAMIDE HCL 10MG/2ML VIAL IV SCH ×4 (05:02→23:19)
[2022-05-29] MEDS: AMPICILLIN SOD/SULBACTAM NA 3 G in SODIUM CHLORIDE 0.9% 100 ML IV SCH ×4 (05:02→23:19)
[2022-05-29 06:20] LABS: CHLORIDE 116 mEq/L (98-107)
[2022-05-29 06:45] LABS: BASOPHILS % 0.6 % (0.0-2.0); EOSINOPHILS % 0.5 % (0.0-5.0); HEMATOCRIT. 26.9 % (42.0-52.0); HEMOGLOBIN. 8.7 g/dL (14.0-18.0); LYMPHOCYTES % 7.2 % (20.0-50.0); MEAN CORPUSCULAR HEMOGLOBIN 29.1 pg (28.0-32.0); MEAN CORPUSCULAR VOLUME 90.1 fL (80.0-94.0); MEAN PLATELET VOLUME 8.3 fl (7.4-10.4); NEUTROPHILS % 88.7 % (40.0-76.0); PLATELET 52 x1000/uL (130-400); RED BLOOD CELL COUNT 2.99 mill/uL (4.7-6.1); RED CELL DISTRIBUTION WIDTH 16.8 % (11.6-14.6)
[2022-05-29] MEDS: METOPROLOL TARTRATE 50MG TABLET PO SCH ×2 (09:05→23:20)
[2022-05-29] MEDS: LEVETIRACETAM 500MG/5ML CUP PO SCH ×2 (09:05→23:19)
[2022-05-29] MEDS: FOLIC ACID 1MG TABLET PO SCH (09:05)
[2022-05-29] MEDS: PANTOPRAZOLE SODIUM 40 MG/VIAL IV SCH (09:05)
[2022-05-29] MEDS: DOCUSATE SODIUM SUGAR FREE 100MG/10ML UDC PEG SCH ×2 (09:05→17:10)
[2022-05-29] MEDS: AMIODARONE HCL 200 MG TABLET PO SCH (09:05)
[2022-05-29] MEDS: ACETAMINOPHEN 325MG TABLET PO PRN (12:30)
[2022-05-30] VITALS (12 sets, daily range): BP systolic 117–149; BP diastolic 60–80
[2022-05-30] MEDS: IPRATROPIUM BROMIDE (0.02%) 0.5MG/2.5ML NEB HHN SCH ×6 (00:37→20:38)
[2022-05-30] MEDS: METOCLOPRAMIDE HCL 10MG/2ML VIAL IV SCH ×3 (06:28→18:14)
[2022-05-30] MEDS: AMPICILLIN SOD/SULBACTAM NA 3 G in SODIUM CHLORIDE 0.9% 100 ML IV SCH ×3 (06:28→18:14)
[2022-05-30] MEDS: DOCUSATE SODIUM SUGAR FREE 100MG/10ML UDC PEG SCH (09:00)
[2022-05-30] MEDS: AMIODARONE HCL 200 MG TABLET PO SCH (10:39)
[2022-05-30] MEDS: METOPROLOL TARTRATE 50MG TABLET PO SCH ×2 (10:39→21:08)
[2022-05-30] MEDS: LEVETIRACETAM 500MG/5ML CUP PO SCH ×2 (10:39→21:07)
[2022-05-30] MEDS: PANTOPRAZOLE SODIUM 40 MG/VIAL IV SCH (10:39)
[2022-05-30] MEDS: FOLIC ACID 1MG TABLET PO SCH (10:40)
[2022-05-30] MEDS: ACETAMINOPHEN 325MG TABLET PO PRN ×2 (10:40→18:14)
[2022-05-30] MEDS: SODIUM CHLORIDE 0.45% 1,000 ML IV SCH ×2 (10:40→19:36)
[2022-05-30] MEDS ORDERED: BLOOD SUGAR DIAGNOSTIC STRIP TEST SCH (12:30)
[2022-05-30 13:09] LABS: BG BASE EXCESS -0.6 mmol/L (-2.0-2.0); BG CARBOXYHEMOGLOBIN 0.3 % (0.5-1.5); BG DEOXYHEMOGLOBIN 3.4 % (0.0-5.0); BG METHEMOGLOBIN 0.2 % (0.0-1.5); BG OXYGEN SATURATION 96.6 % (92.0-98.5); BG OXYHEMOGLOBIN 96.1 % (94.0-97.0); BG PCO2 29.7 mmHg (35.0-45.0); BG PH 7.488 (7.350-7.450); BG PO2 90.9 mmHg (75.0-100.0); BG SAMPLE SITE RIGHT RADIAL; BG TOTAL HEMOGLOBIN 11.1 g/dL (12.0-18.0); BG VENT MODE VENT - AC
[2022-05-30 16:27] LABS: INR 1.3; PARTIAL THROMBOPLASTIN TIME 37.3 sec (23.4-31.0); PROTHROMBIN TIME 13.5 sec (9.6-11.0)
[2022-05-31] VITALS (17 sets, daily range): BP systolic 99–147; BP diastolic 56–88
[2022-05-31] MEDS: METOCLOPRAMIDE HCL 10MG/2ML VIAL IV SCH ×4 (00:15→17:01)
[2022-05-31] MEDS: IPRATROPIUM BROMIDE (0.02%) 0.5MG/2.5ML NEB HHN SCH ×6 (00:21→21:06)
[2022-05-31] MEDS: ACETAMINOPHEN 325MG TABLET PO PRN (04:30)
[2022-05-31] MEDS: AMPICILLIN SOD/SULBACTAM NA 3 G in SODIUM CHLORIDE 0.9% 100 ML IV SCH ×4 (05:36→23:48)
[2022-05-31 05:58] LABS: CHLORIDE 113 mEq/L (98-107)
[2022-05-31 05:59] LABS: BASOPHILS % 0.9 % (0.0-2.0); EOSINOPHILS % 0.4 % (0.0-5.0); HEMATOCRIT. 30.7 % (42.0-52.0); HEMOGLOBIN. 9.8 g/dL (14.0-18.0); LYMPHOCYTES % 8.9 % (20.0-50.0); MEAN CORPUSCULAR HEMOGLOBIN 29.2 pg (28.0-32.0); MEAN CORPUSCULAR VOLUME 91.6 fL (80.0-94.0); MEAN PLATELET VOLUME 8.1 fl (7.4-10.4); MONOCYTES % 2.9 % (2.0-8.0); NEUTROPHILS % 86.9 % (40.0-76.0); PLATELET 52 x1000/uL (130-400); RED BLOOD CELL COUNT 3.36 mill/uL (4.7-6.1)
[2022-05-31 06:03] LABS: PHOSPHORUS 3.4 mg/dL (2.5-4.9)
[2022-05-31] MEDS: SODIUM CHLORIDE 0.45% 1,000 ML IV SCH ×2 (06:07→16:56)
[2022-05-31] MEDS: AMIODARONE HCL 200 MG TABLET PO SCH (08:17)
[2022-05-31] MEDS: FOLIC ACID 1MG TABLET PO SCH (08:17)
[2022-05-31] MEDS: PANTOPRAZOLE SODIUM 40 MG/VIAL IV SCH (08:17)
[2022-05-31] MEDS: LEVETIRACETAM 500MG/5ML CUP PO SCH ×2 (08:17→20:02)
[2022-05-31] MEDS: IBUPROFEN 400MG TABLET PO PRN (08:17)
[2022-05-31] MEDS: METOPROLOL TARTRATE 50MG TABLET PO SCH ×2 (08:17→20:03)
[2022-05-31 12:07] LABS: CLARITY URINE TURBID (CLEAR); COLOR URINE BLOODY (YELLOW); SPECIFIC GRAVITY URINE 1.023 (1.005-1.030)
[2022-05-31 12:08] LABS: KETONES URINE NEGATIVE (NEGATIVE); LEUKOCYTE ESTERASE URINE 2+ (NEGATIVE); NITRITE URINE POSITIVE (NEGATIVE); OCCULT BLOOD URINE 2+ (NEGATIVE); PROTEIN URINE 2+ (NEGATIVE); UROBILINOGEN URINE 0.2 E.U./dL (0.2-1.0)
[2022-05-31] MEDS ORDERED: VANCOMYCIN 2,000 MG in DEXT 5% WATER 500 ML IV SCH (13:30)
[2022-05-31] MEDS: MEROPENEM 1,000 MG in SODIUM CHLORIDE 0.9% 100 ML IV SCH ×2 (14:07→21:15)
[2022-05-31] MEDS ORDERED: MAGNESIUM 2 G PREMIX 50 ML IV SCH (15:00)
[2022-05-31] MEDS: VANCOMYCIN 1GM PMX (XELLIA) 200 ML IV SCH (21:20)
[2022-06-01] VITALS (12 sets, daily range): BP systolic 95–136; BP diastolic 52–73
[2022-06-01] MEDS: METOCLOPRAMIDE HCL 10MG/2ML VIAL IV SCH ×5 (00:41→23:08)
[2022-06-01] MEDS: IPRATROPIUM BROMIDE (0.02%) 0.5MG/2.5ML NEB HHN SCH ×6 (00:47→20:40)
[2022-06-01] MEDS: AMPICILLIN SOD/SULBACTAM NA 3 G in SODIUM CHLORIDE 0.9% 100 ML IV SCH ×4 (05:02→23:08)
[2022-06-01] MEDS: ACETAMINOPHEN 325MG TABLET PO PRN ×2 (05:15→16:05)
[2022-06-01] MEDS: MEROPENEM 1,000 MG in SODIUM CHLORIDE 0.9% 100 ML IV SCH ×3 (05:34→21:01)
[2022-06-01] MEDS: VANCOMYCIN 1GM PMX (XELLIA) 200 ML IV SCH ×3 (06:11→22:09)
[2022-06-01] MEDS: FOLIC ACID 1MG TABLET PO SCH (08:43)
[2022-06-01] MEDS: PANTOPRAZOLE SODIUM 40 MG/VIAL IV SCH (08:43)
[2022-06-01] MEDS: LEVETIRACETAM 500MG/5ML CUP PO SCH ×2 (08:43→20:53)
[2022-06-01] MEDS: METOPROLOL TARTRATE 50MG TABLET PO SCH ×2 (08:43→20:54)
[2022-06-01] MEDS: AMIODARONE HCL 200 MG TABLET PO SCH (08:44)
[2022-06-01] MEDS: SODIUM CHLORIDE 0.45% 1,000 ML IV SCH ×2 (08:54→22:14)
[2022-06-02] VITALS (12 sets, daily range): BP systolic 109–138; BP diastolic 49–74
[2022-06-02] MEDS: IPRATROPIUM BROMIDE (0.02%) 0.5MG/2.5ML NEB HHN SCH ×6 (00:39→20:36)
[2022-06-02] MEDS: ACETAMINOPHEN 325MG TABLET PO PRN ×2 (04:01→12:00)
[2022-06-02] MEDS: MEROPENEM 1,000 MG in SODIUM CHLORIDE 0.9% 100 ML IV SCH ×3 (05:00→21:30)
[2022-06-02] MEDS: METOCLOPRAMIDE HCL 10MG/2ML VIAL IV SCH ×4 (05:00→23:53)
[2022-06-02] MEDS: AMPICILLIN SOD/SULBACTAM NA 3 G in SODIUM CHLORIDE 0.9% 100 ML IV SCH ×4 (05:33→23:53)
[2022-06-02 06:06] LABS: CHLORIDE 114 mEq/L (98-107)
[2022-06-02] MEDS: VANCOMYCIN 1GM PMX (XELLIA) 200 ML IV SCH (06:09)
[2022-06-02 06:33] LABS: BASOPHILS % 0.7 % (0.0-2.0); EOSINOPHILS % 0.6 % (0.0-5.0); LYMPHOCYTES % 9.4 % (20.0-50.0); MEAN CORPUSCULAR HEMOGLOBIN 29.6 pg (28.0-32.0); MEAN CORPUSCULAR VOLUME 89.8 fL (80.0-94.0); MEAN PLATELET VOLUME 8.6 fl (7.4-10.4); NEUTROPHILS % 86.3 % (40.0-76.0); PLATELET 54 x1000/uL (130-400); RED BLOOD CELL COUNT 2.63 mill/uL (4.7-6.1); RED CELL DISTRIBUTION WIDTH 16.4 % (11.6-14.6)
[2022-06-02 07:16] LABS: HEMATOCRIT. 23.7 % (42.0-52.0); HEMOGLOBIN. 7.8 g/dL (14.0-18.0)
[2022-06-02] MEDS: SODIUM CHLORIDE 0.45% 1,000 ML IV SCH ×2 (08:46→17:04)
[2022-06-02] MEDS: LEVETIRACETAM 500MG/5ML CUP PO SCH ×2 (08:47→21:29)
[2022-06-02] MEDS: METOPROLOL TARTRATE 50MG TABLET PO SCH ×2 (08:47→21:30)
[2022-06-02] MEDS: FOLIC ACID 1MG TABLET PO SCH (08:47)
[2022-06-02] MEDS: AMIODARONE HCL 200 MG TABLET PO SCH (08:47)
[2022-06-02] MEDS: PANTOPRAZOLE SODIUM 40 MG/VIAL IV SCH (08:51)
[2022-06-03] VITALS (13 sets, daily range): BP systolic 109–140; BP diastolic 53–75
[2022-06-03] MEDS: IPRATROPIUM BROMIDE (0.02%) 0.5MG/2.5ML NEB HHN SCH ×6 (00:45→20:44)
[2022-06-03] MEDS: AMPICILLIN SOD/SULBACTAM NA 3 G in SODIUM CHLORIDE 0.9% 100 ML IV SCH ×4 (05:05→23:05)
[2022-06-03] MEDS: MEROPENEM 1,000 MG in SODIUM CHLORIDE 0.9% 100 ML IV SCH ×3 (05:06→20:54)
[2022-06-03] MEDS: SODIUM CHLORIDE 0.45% 1,000 ML IV SCH ×3 (05:06→20:21)
[2022-06-03] MEDS: METOCLOPRAMIDE HCL 10MG/2ML VIAL IV SCH ×4 (05:07→23:07)
[2022-06-03] MEDS: VANCOMYCIN 750MG PREMIX 150 ML IV SCH ×2 (05:30→17:34)
[2022-06-03 06:45] LABS: BASOPHILS % 0.5 % (0.0-2.0); EOSINOPHILS % 0.4 % (0.0-5.0); HEMATOCRIT. 22.8 % (42.0-52.0); HEMOGLOBIN. 7.5 g/dL (14.0-18.0); LYMPHOCYTES % 7.2 % (20.0-50.0); MEAN CORPUSCULAR HEMOGLOBIN 29.5 pg (28.0-32.0); MEAN CORPUSCULAR VOLUME 89.5 fL (80.0-94.0); MEAN PLATELET VOLUME 9.1 fl (7.4-10.4); MONOCYTES % 3.5 % (2.0-8.0); NEUTROPHILS % 88.4 % (40.0-76.0); PLATELET 63 x1000/uL (130-400); RED BLOOD CELL COUNT 2.55 mill/uL (4.7-6.1); RED CELL DISTRIBUTION WIDTH 16.5 % (11.6-14.6)
[2022-06-03 07:07] LABS: CHLORIDE 112 mEq/L (98-107)
[2022-06-03] MEDS: FOLIC ACID 1MG TABLET PO SCH (10:05)
[2022-06-03] MEDS: PANTOPRAZOLE SODIUM 40 MG/VIAL IV SCH (10:05)
[2022-06-03] MEDS: AMIODARONE HCL 200 MG TABLET PO SCH (10:06)
[2022-06-03] MEDS: METOPROLOL TARTRATE 50MG TABLET PO SCH ×2 (10:06→20:20)
[2022-06-03] MEDS: LEVETIRACETAM 500MG/5ML CUP PO SCH ×2 (10:06→20:18)
[2022-06-03] MEDS: IBUPROFEN 400MG TABLET PO PRN (20:16)
[2022-06-04] VITALS (12 sets, daily range): BP systolic 120–144; BP diastolic 67–81
[2022-06-04] MEDS: IPRATROPIUM BROMIDE (0.02%) 0.5MG/2.5ML NEB HHN SCH ×6 (00:21→20:40)
[2022-06-04] MEDS: MEROPENEM 1,000 MG in SODIUM CHLORIDE 0.9% 100 ML IV SCH ×3 (05:27→21:07)
[2022-06-04] MEDS: METOCLOPRAMIDE HCL 10MG/2ML VIAL IV SCH ×4 (05:28→22:59)
[2022-06-04] MEDS: AMPICILLIN SOD/SULBACTAM NA 3 G in SODIUM CHLORIDE 0.9% 100 ML IV SCH ×4 (05:31→22:59)
[2022-06-04] MEDS: VANCOMYCIN 750MG PREMIX 150 ML IV SCH ×2 (05:32→18:03)
[2022-06-04 06:20] LABS: BASOPHILS % 0.5 % (0.0-2.0); EOSINOPHILS % 0.7 % (0.0-5.0); HEMATOCRIT. 24.1 % (42.0-52.0); HEMOGLOBIN. 7.8 g/dL (14.0-18.0); LYMPHOCYTES % 8.3 % (20.0-50.0); MEAN CORPUSCULAR HEMOGLOBIN 29.5 pg (28.0-32.0); MEAN CORPUSCULAR VOLUME 90.6 fL (80.0-94.0); MEAN PLATELET VOLUME 8.5 fl (7.4-10.4); MONOCYTES % 4.3 % (2.0-8.0); NEUTROPHILS % 86.2 % (40.0-76.0); PLATELET 62 x1000/uL (130-400); RED BLOOD CELL COUNT 2.66 mill/uL (4.7-6.1); RED CELL DISTRIBUTION WIDTH 16.5 % (11.6-14.6)
[2022-06-04 06:28] LABS: CHLORIDE 115 mEq/L (98-107)
[2022-06-04] MEDS: METOPROLOL TARTRATE 50MG TABLET PO SCH ×2 (09:00→21:09)
[2022-06-04] MEDS: FOLIC ACID 1MG TABLET PO SCH (09:00)
[2022-06-04] MEDS: AMIODARONE HCL 200 MG TABLET PO SCH (09:00)
[2022-06-04] MEDS: LEVETIRACETAM 500MG/5ML CUP PO SCH ×2 (09:00→21:09)
[2022-06-04] MEDS: PANTOPRAZOLE SODIUM 40 MG/VIAL IV SCH (09:00)
[2022-06-04] MEDS: SODIUM CHLORIDE 0.45% 1,000 ML IV SCH ×2 (09:13→21:11)
[2022-06-05] VITALS (10 sets, daily range): BP systolic 94–170; BP diastolic 56–91
[2022-06-05] MEDS: IPRATROPIUM BROMIDE (0.02%) 0.5MG/2.5ML NEB HHN SCH ×3 (00:07→08:40)
[2022-06-05] MEDS: METOCLOPRAMIDE HCL 10MG/2ML VIAL IV SCH (05:17)
[2022-06-05] MEDS: SODIUM CHLORIDE 0.45% 1,000 ML IV SCH (05:19)
[2022-06-05] MEDS ORDERED: MORPHINE SULFATE 250 MG in DEXT 5% WATER 225 ML IV PRN (06:00)
[2022-06-05] MEDS: LEVETIRACETAM 500MG/5ML CUP PO SCH ×3 (10:07→20:40)
[2022-06-06] VITALS: BP 106/59
[2022-06-06 02:00] VITALS: BP 66/37
[2022-06-06 04:00] VITALS: BP 58/30
== END 2022-06-06 06:39 | DRG 720 ==
LOC: ER 23:24 → 3WST 05-17 02:45 → EDBEDREQ 05-17 02:47 → EDBEDREQDT 05-17 02:47 → EDBEDREQTM 05-17 02:47 → SUPCPDRO 05-17 07:20 → 5EST 05-17 10:33
PROVIDERS: ADMIT Internal Medicine; ATTEND Internal Medicine
PROC: 5A1955Z Respiratory Ventilation, Greater than 96 Consecutive Hours (ICD-10-PCS; principal; 2022-05-17)
PROC: 4A00X4Z Measurement of Central Nervous Electrical Activity, External Approach (ICD-10-PCS; 2022-05-18)
PROC: 30233N1 Transfusion of Nonautologous Red Blood Cells into Peripheral Vein, Percutaneous Approach (ICD-10-PCS; 2022-05-28)
PROC: 4A00X4Z Measurement of Central Nervous Electrical Activity, External Approach (ICD-10-PCS; 2022-06-01)
DX: A41.59 Other Gram-negative sepsis (principal); J96.21 Acute and chronic respiratory failure with hypoxia; J69.0 Pneumonitis due to inhalation of food and vomit; G92.8 Other toxic encephalopathy; J90 Pleural effusion, not elsewhere classified; J15.6 Pneumonia due to other Gram-negative bacteria; E44.0 Moderate protein-calorie malnutrition; C79.51 Secondary malignant neoplasm of bone; D69.6 Thrombocytopenia, unspecified; E87.0 Hyperosmolality and hypernatremia; I12.0 Hypertensive chronic kidney disease with stage 5 chronic kidney disease or end stage renal disease; I47.1 Supraventricular tachycardia; H70.13 Chronic mastoiditis, bilateral; E86.0 Dehydration; D64.9 Anemia, unspecified; G40.909 Epilepsy, unspecified, not intractable, without status epilepticus; G96.08 Other cranial cerebrospinal fluid leak; E11.22 Type 2 diabetes mellitus with diabetic chronic kidney disease; I31.3 Pericardial effusion (noninflammatory); K29.70 Gastritis, unspecified, without bleeding; K59.00 Constipation, unspecified; K62.89 Other specified diseases of anus and rectum; N18.6 End stage renal disease; N30.20 Other chronic cystitis without hematuria; R13.10 Dysphagia, unspecified; R29.810 Facial weakness; Z20.822 Contact with and (suspected) exposure to COVID-19; R65.20 Severe sepsis without septic shock; R79.89 Other specified abnormal findings of blood chemistry; R59.0 Localized enlarged lymph nodes; I95.9 Hypotension, unspecified; B96.89 Other specified bacterial agents as the cause of diseases classified elsewhere; B96.4 Proteus (mirabilis) (morganii) as the cause of diseases classified elsewhere; R74.01 Elevation of levels of liver transaminase levels; G81.91 Hemiplegia, unspecified affecting right dominant side; K52.9 Noninfective gastroenteritis and colitis, unspecified; Z66 Do not resuscitate; Z78.1 Physical restraint status; Z85.46 Personal history of malignant neoplasm of prostate; Z86.73 Personal history of transient ischemic attack (TIA), and cerebral infarction without residual deficits; Z93.0 Tracheostomy status; Z51.5 Encounter for palliative care; Z93.1 Gastrostomy status; Z99.11 Dependence on respirator [ventilator] status; Z88.8 Allergy status to other drugs, medicaments and biological substances; Z91.011 Allergy to milk products
CPT/HCPCS: 36415; 36600; 70496; 70498; 71045; 74176; 76770; 80048; 80053; 80076; 80202; 81003; 82248; 82270; 82375; 82550; 82607; 82728; 82746; 82747; 82805; 82962; 83036; 83540; 83550; 83605; 83735; 84100; 84145; 84484; 85014; 85018; 85025; 85044; 85049; 85384; 86256; 86671; 86850; 86900; 86920; 87070; 87077; 87186; 87426; 93005; 93306; 93970; 94002; 94003; 94640; 95816; 99291; C9113; J0295; J0692; J1160; J1953; J2185; J2270; J2405; J2765; J3370; J3475; J3490; J7030; J7050; J7060; J7608; P9016; Q9967